=== PATIENT | male | born 1955 | race Caucasian/White ===

== ENCOUNTER 2018-07-13 18:38 | Inpatient (IN) | payer MEDICARE, OTHER, SELFPAY ==
[2018-07-13 18:40] VITALS: BP 138/83; PULSE 100; RESP 20; TEMP 36.1; O2SAT 96; BMI 31.0
--- NOTE | 2018-07-13 19:07 | EKG12_ITS ---
Test Reason : SOB Blood Pressure : / mmHG Vent. Rate : 080 BPM Atrial Rate : 080 BPM P-R Int : 206 ms QRS Dur : 080 ms QT Int : 350 ms P-R-T Axes : 031 018 027 degrees QTc Int : 403 ms Normal sinus rhythm Possible Left atrial enlargement Borderline ECG Confirmed by ISSA RIVAS, JOIE ([id number]), book or script editor BRISSA MOY ([id number]) on 07/16/2018 3:17:49 PM Referred By: SONIA Confirmed By:JOIE PARSONS MD
--- NOTE | 2018-07-13 19:10 | RAD_ITS ---
STUDY: X-RAY CHEST REASON FOR EXAM: Male, 63 years old. Shortness of breath. TECHNIQUE: Single frontal view of the chest. COMPARISON: None. FINDINGS: The left lung is mildly hyperexpanded. There are patchy opacities in the right middle and lower lobe likely representing atelectasis with a large right pleural effusion. There is a mild diffuse interstitial pattern to the right lung. Normal size heart. Normal mediastinum and ashley. Normal visualized pulmonary arteries. Normal visualized aortic arch and descending thoracic aorta. Normal visualized thoracic spine. Normal visualized ribs, clavicles, and shoulders. There is no demonstrated abnormality of the visualized soft tissue structures of the upper abdomen. RAD/Chest 1 View (Portable) IMPRESSION: Hyperexpansion of the left lung. Patchy opacities in the right middle and lower lobes likely representing atelectasis with a large right pleural effusion. No focal consolidation is present. Electronically Signed: Benigno Steven MD at 19:24 EDT , Service support ,
--- NOTE | 2018-07-13 19:10 | ED.DCSUM_ITS ---
- ER Visit Summary Date of Service: 07/13/18 Chief Complaint: Shortness of breath History of Present Illness: The patient is a 63 M presenting with shortness of breath, generalized weakness. 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 He started chemotherapy 8 days ago. Since that time he has been declining. He denies fever. He has had decreased appetite. He has nausea with no vomiting. He initially had constipation which then became diarrhea. He states his stool is more formed and normal today. He is on home O2 4 L chronically. He denies chest pain or abdominal pain. He is a previous smoker. Physical Examination: Vitals are stable. Patient is afebrile. Alert no acute distress. HEENT exam is unremarkable. Neck is supple. Lungs are rales bases bilaterally. Heart is regular rate and rhythm. Abdomen is soft nontender nondistended. Extremities are unremarkable. Skin is warm and dry. No focal neurologic deficit. Remainder of exam is unremarkable. Emergency Department Course and Treatment: Patient given IV fluids, Zofran. EKG is sinus rate of 80 with no acute ischemic changes. Chest x-ray shows hyperexpansion of the left lung, patchy opacities in the right middle and lower lobes likely representing atelectasis with a large right pleural effusion. No focal consolidation is present. CBC shows white count 1.1, platelet 110. Chemistries show glucose 150, BUN 41. Urinalysis shows positive leukocytes, 5- 10 white blood cells. Troponin negative. Lactic acid 2.2. Urine and blood cultures were sent. He was given cefepime IV. Discussed with Dr Macario and the hospitalist for admission. Disposition: Admission Impression: Metastatic lung cancer, neutropenia, right pleural effusion, UTI, generalized weakness This note was generated with zuuka! dictation software. It may contain incorrect words, spelling, and punctuation that were not noted in review of the chart prior to signing ED Disposition - Plan for ED Patient: Chief Complaint: Shortness of Breath Referrals: Kimberlyn Santiago NP-C [Primary Care Provider] -
[2018-07-13] MEDS: Ondansetron 4 MG/2 ML Vial IV ×2 (19:20→23:20)
[2018-07-13] MEDS: 0.9% Normal Saline 1,000 ML 1000 ML IV (19:20)
[2018-07-13 19:33] LABS: Absolute Lymphocyte Count 0.63 X10^3/ul (0.83-4.51); Absolute Neutrophil Count 0.4 X10^3/uL (2.0-7.7); Basophil# 0.01 X10^3/uL; Basophil% 0.9 % (0-1); Differential Indicated SCAN CRITERIA MET; Eosinophil# 0.02 X10^3/uL; Eosinophils% 1.8 % (0-5); Hematocrit 42.7 % (40-54); Hemoglobin 13.4 g/dl (13.0-16.5); Lymphocyte # 0.63 X10^3/ul (4.0); Lymphocyte % 57.8 % (19-41); Mean Corp Hgb Conc 31.4 g/gl (32-36); Mean Corpuscular Volume 82.8 fL (80-94); Mean Platelet Vol. 10.2 fl (6.2-12.0); Neutrophil # 0.43 X10^3/uL (2.7-7.7); Neutrophil % 39.5 % (47-70); POSITIVE COUNT YES; POSITIVE DIFFERENTIAL YES; POSITIVE MORPHOLOGY YES; Platelet Count 110 K/mm3 (150-450); RBC Distribution Width CV 14.4 % (11.6-14.6); RBC Distribution Width SD 43.9 fl (35.1-43.9); Red Blood Count 5.16 M/mm3 (4.6-6.2)
[2018-07-13 19:35] LABS: White Blood Count 1.1 K/mm3 (4.4-11.0)
[2018-07-13 19:40] LABS: Bacteria 0 SEEN /hpf (None Seen); Mucous, Urine 0 SEEN /hpf (<or=2+); Red Blood Cells-Urine 0 SEEN /hpf (0-5); Squamous Epithelial Cells - UA 0 SEEN /hpf (0-5)
[2018-07-13 19:43] LABS: Anion Gap 11 (5-15); BUN 41 mg/dL (7-18); BUN/Creat Ratio 32.3 RATIO (10-20); Calcium,Total 9.1 mg/dL (8.5-10.1); Chloride 103 mmol/L (98-107); Creatinine, Serum 1.27 mg/dL (0.70-1.30); EST Glomerular Filtration Rate 60 mL/min (>60); Est Glom Filt Rate - Afr Amer 73 mL/min (>60); Estimated Creatinine Clearance 54.22 ml/min; Glucose 150 mg/dL (74-106); Potassium 4.6 mmol/L (3.5-5.1); Sodium Level 138 mmol/L (136-145)
--- NOTE | 2018-07-13 19:44 | ED.RN ---
WBC OF 1.[address] SCOTT
[2018-07-13 19:54] LABS: Color, Urine Yellow (Yellow); Glucose, Dipstick 50 mg/dl (Normal); Ketone-Dipstick 5 mg/dl (Negative); Leukocyte Esterase-Dipstick 500 /ul (Negative); Nitrite-Dipstick Negative (Negative); Occult Blood-Urine 25 /ul (Negative); Protein-Dipstick 100 mg/dl (Negative); Urine Clarity Sl. Cloudy (Clear); Urine Urobilinogen 8 mg/dl (Normal)
[2018-07-13 20:08] VITALS: BP 149/79; PULSE 85; RESP 18; O2SAT 96
[2018-07-13 20:11] LABS: Differential Comment SCANNED
[2018-07-13 20:12] LABS: Lactic Acid 2.2 mmol/L (0.4-2.0)
[2018-07-13 20:17] LABS: Urine Bilirubin Dipstick 3 mg/dL (Negative)
[2018-07-13 20:22] LABS: White Cell Cast 0-5 SEEN /lpf (None Seen)
[2018-07-13 20:25] LABS: White Blood Cells 5-10 SEEN /hpf (0-5)
--- NOTE | 2018-07-13 20:58 | HP.PCM_ITS ---
Problem List (1) Metastatic primary lung cancer Status: Acute (2) Neutropenia Status: Acute (3) Cystitis Status: Acute History of Present Illness Date of Admission: 07/13/18 Chief Complaint: Increasing shortness of breath The patient is a 63 year old M with a significant history of metastatic lung cancer who received chemotherapy 8 days ago presenting with increasing shortness of breath and noisy respiration that started about a week ago. His oncology nurse check on him over the phone and advised him to come to the emergency department. Associated with symptoms is anorexia and diarrhea. Patient had a pleural effusions with multiple thoracentesis. At the emergency department was found to have right-sided pleural effusion. His urinalysis was abnormal but patient denied any urinary symptoms. He was found to be severely neutropenic with white blood count of 1.1. He reports episodic diarrhea and an occasional wiping blood from his anus that he attributes to hemorrhoids. Past Medical History Allergies No Known Allergies Allergy (Verified 07/13/18 18:39) Home Medications: Ambulatory Orders Medication Instructions Recorded Bmx Liquid 5 ml PO Q4H PRN PRN 07/13/18 Dexamethasone [Decadron] 4 mg PO BIDCM 07/13/18 Dronabinol [Marinol] 5 mg PO BID 07/13/18 Folic Acid 1 mg PO DAILY@0800 07/13/18 Hydrocodone/Acetaminophen [[place] 1 each PO Q6H PRN PRN 07/13/18 5-325 Tablet] Ibuprofen [Motrin] 800 mg PO Q6H PRN PRN 07/13/18 Ipratropium/Albuterol Sulfate 3 ml INHALATION Q4H.RT 07/13/18 [Duoneb] Omeprazole 40 mg PO DAILY 07/13/18 Ondansetron [Zofran] 8 mg PO Q8H PRN PRN 07/13/18 Pembrolizumab [Keytruda] 100 mg IV 07/13/18 Pemetrexed 07/13/18 Sertraline HCl [Zoloft] 50 mg PO DAILY 07/13/18 Surgical History: - - Had basal cell carcinoma removal from his face. Lives: Spouse/ Significant Other Smoking Status: Former smoker Alcohol: None - *Family History Maternal Family History: Family History (Last Updated 07/13/18 @ 21:44 by Arsenio Pedro MD) Brother Heart problem History Items: Diabetes Paternal Family History: Family History (Last Updated 07/13/18 @ 21:44 by Arsenio Pedro MD) Brother Heart problem History Items: Diabetes Review of Systems Constitutional: Reports: Anorexia, Weakness HEENT: Denies: Head Aches, Sinus Congestion, Sinus Drainage Cardiovascular: Denies: Chest Pain, Palpitations Respiratory: Reports: Shortness of Breath. Denies: Cough Gastrointestinal: Reports: Diarrhea, Nausea. Denies: Abdominal Pain Genitourinary: Denies: Dysuria Musculoskeletal: Denies: Joint Pain, Joint Tenderness Skin: Denies: Rash, Wounds Neurological: Denies: Numbness, Tingling, Focal weakness Psychiatric: Denies: Anxiety, Depression, Homicidal Ideations, Suicidal Ideations Hematologic/ Lymphatic: Denies: Easy Bruising, Easy Bleeding VTE Information - Inpt Only VTE Present on Admission: No VTE Mechan Device Prophylaxis: None VTE Pharm Prophylaxis ordered?: Yes Patient Problems: Active and Suspected Problems Metastatic primary lung cancer (Acute) Neutropenia (Acute) Cystitis (Acute) - Physical Exam General: Alert, Oriented x3, - - Patient looks tired. HEENT: Atraumatic, PERRLA, EOMI, Normocephalic Neck: Supple, No JVD, Negative Carotid Bruits Lungs: Clear to auscultation, Normal air movement, Diminished - Right base. Cardiovascular: Regular rate, No murmurs Abdomen: Bowel Sounds Present, Soft, Non Tender Extremities: No edema, Capillary Refill Less than 3 Seconds Skin: No rashes, No breakdown Musculoskeletal: No Tenderness to Palpation of Joints or Extremities Neurological: Cranial nerves II-XII grossly intact Psych/Mental Status: Normal Affect, Appropriate Vital Signs Temp Pulse Resp BP Pulse Ox 96.9 F L 85 18 149/79 H 96 07/13/18 18:40 07/13/18 20:08 07/13/18 20:08 07/13/18 20:08 07/13/18 20:08 Oxygen Flow Rate (L/min) 4 Oxygen Delivery Method Nasal Cannula Weight: 89.9 kg Body Mass Index (BMI) 31.0 Laboratory Tests Past 24 Hrs 07/13/18 07/13/18 07/13/18 18:58 18:58 19:18 WBC 1.1 L* RBC 5.16 Hgb 13.4 Hct 42.7 MCV 82.8 MCH 26.0 L MCHC 31.4 L RDW 14.4 RDW Differential 43.9 Plt Count 110 L MPV 10.2 Immature Gran % (Auto) 0.000 Neut % (Auto) 39.5 L Lymph % (Auto) 57.8 H [place] % (Auto) 0.0 Eos % (Auto) 1.8 Baso % (Auto) 0.9 Absolute Neuts (auto) 0.4 L Absolute Lymphs (auto) 0.63 L Total Counted Not Reportable Differential Comment SCANNED Diff Path Review May foll Sodium 138 Potassium 4.6 Chloride 103 Carbon Dioxide 24.0 Anion Gap 11 BUN 41 H Creatinine 1.27 Estim Creat Clear Calc 54.22 Est GFR (MDRD) Af Amer 73 Est GFR (MDRD) Non-Af 60 BUN/Creatinine Ratio 32.3 H Glucose 150 H Lactic Acid 2.2 H Calcium 9.1 Troponin I < 0.015 Urine Color Urine Clarity Urine pH Ur Specific [place] Urine Protein Urine Glucose (UA) Urine Ketones Urine Occult Blood Urine Nitrite Urine Bilirubin Urine Urobilinogen Ur Leukocyte Esterase Urine RBC Urine WBC Ur Squamous Epith Cells Urine Bacteria WBC Casts Urine Mucus 07/13/18 19:30 WBC RBC Hgb Hct MCV MCH MCHC RDW RDW Differential Plt Count MPV Immature Gran % (Auto) Neut % (Auto) Lymph % (Auto) [place] % (Auto) Eos % (Auto) Baso % (Auto) Absolute Neuts (auto) Absolute Lymphs (auto) Total Counted Differential Comment Diff Path Review Sodium Potassium Chloride Carbon Dioxide Anion Gap BUN Creatinine Estim Creat Clear Calc Est GFR (MDRD) Af Amer Est GFR (MDRD) Non-Af BUN/Creatinine Ratio Glucose Lactic Acid Calcium Troponin I Urine Color Yellow Urine Clarity Sl. Cloudy Urine pH 6.0 Ur Specific [place] 1.020 Urine Protein 100 H Urine Glucose (UA) 50 H Urine Ketones 5 H Urine Occult Blood 25 H Urine Nitrite Negative Urine Bilirubin 3 H Urine Urobilinogen 8 H Ur Leukocyte Esterase 500 H Urine RBC 0 SEEN Urine WBC 5-10 SEEN Ur Squamous Epith Cells 0 SEEN Urine Bacteria 0 SEEN WBC Casts 0-5 SEEN Urine Mucus 0 SEEN Assessment/Plan All Active Problems Metastatic primary lung cancer (Acute) Neutropenia (Acute) Cystitis (Acute) The patient is a 63 year old M with a significant history of metastatic lung cancer who received chemotherapy 8 days ago presenting with increasing shortness of breath and noisy respiration and found to have radiographic evidence of right-sided pleural effusion and severe neutropenia with abnormal urinalysis. Right pleural effusion Radiographic evidence of right pleural effusion and opacities in right middle lobe and lower lobe. Likely secondary to metastatic lung cancer. Therapeutic ultrasound thoracentesis ordered. Patient on Cefepime which should also help for any probable pneumonia. INR ordered. Metastatic lung cancer Patient is a known patient of Dr. Savage, oncologist. Oncology consult. Imodium as needed for diarrhea Zofran as needed for nausea. Continue Marinol for anorexia. Prn norco for pain. Neutropenia Patient is a white count of 1.1 on admission. With percentage neutrophils of 39.5 this brings his absolute neutrophils to 434.5 Neutropenic precautions ordered. Cystitis Patient with abnormal urinalysis but denies any urinary symptoms. However because of his neutropenia we will not take any chances at this time. He received cefepime in the emergency department. Cefepime Continued. DVT prophylaxis Subcutaneous heparin ordered. In view of patient's going to receive thoracentesis Lovenox was not ordered. Code Visit Inpatient E&M: 48044 Init Hosp L3
[2018-07-13 22:10] VITALS: BMI 30.9
[2018-07-13 22:35] VITALS: BP 131/74; PULSE 81; RESP 18; RESP 20; TEMP 36.8; O2SAT 94
[2018-07-13] MEDS: Ibuprofen 400 MG Tablet 800 MG PO (22:58)
[2018-07-13] MEDS: HYDROcodone Bitartrate/Apap 5/325 Tablet PO (22:59)
[2018-07-13] MEDS: Heparin Injection (Vial) 5,000 UNIT/ML VIAL 5000 UNIT SC (23:00)
[2018-07-13] MEDS: Dronabinol 2.5 MG Capsule 5 MG PO (23:00)
[2018-07-13] MEDS: BMX LIQUID 180 ML PO (23:01)
[2018-07-13] MEDS: 0.9% NaCl Peripheral Flush Adult/Peds IV (23:20)
[2018-07-13 23:26] LABS: Reflex Lactate? Y
[2018-07-14] VITALS (8 sets, daily range): BP systolic 127–154; BP diastolic 72–78; PULSE 91–96; RESP 16–18; TEMP 36.4–37; O2SAT 94–97
[2018-07-14 00:26] LABS: Lactic Acid 1.6 mmol/L (0.4-2.0)
[2018-07-14] MEDS: Ibuprofen 400 MG Tablet 800 MG PO ×2 (05:03→20:46)
[2018-07-14] MEDS: Heparin Injection (Vial) 5,000 UNIT/ML VIAL 5000 UNIT SC ×2 (05:03→14:17)
[2018-07-14] MEDS: HYDROcodone Bitartrate/Apap 5/325 Tablet PO ×3 (05:03→20:46)
[2018-07-14] MEDS: Ipratropium/Albuterol Sulfate 3 ML AMPUL.NEB INHALATION ×4 (07:46→18:56)
[2018-07-14] MEDS: Folic Acid 1 MG Tablet PO (07:47)
[2018-07-14] MEDS: Ondansetron 4 MG/2 ML Vial IV ×2 (07:52→17:29)
[2018-07-14 07:53] LABS: Absolute Lymphocyte Count 0.34 X10^3/ul (0.83-4.51); Absolute Neutrophil Count 0.2 X10^3/uL (2.0-7.7); Basophil# 0.01 X10^3/uL; Basophil% 1.9 % (0-1); Eosinophil# 0.01 X10^3/uL; Eosinophils% 1.9 % (0-5); Hematocrit 36.8 % (40-54); Hemoglobin 11.6 g/dl (13.0-16.5); Lymphocyte # 0.34 X10^3/ul (4.0); Lymphocyte % 65.4 % (19-41); Mean Corp Hgb Conc 31.5 g/gl (32-36); Mean Corpuscular Hgb 25.8 pg (27.0-32.0); Mean Platelet Vol. 10.5 fl (6.2-12.0); Neutrophil # 0.16 X10^3/uL (2.7-7.7); Neutrophil % 30.8 % (47-70); Platelet Count 81 K/mm3 (150-450); RBC Distribution Width CV 14.5 % (11.6-14.6); RBC Distribution Width SD 42.3 fl (35.1-43.9); Red Blood Count 4.49 M/mm3 (4.6-6.2)
[2018-07-14] MEDS: 0.9% NaCl Peripheral Flush Adult/Peds IV ×3 (07:53→17:29)
[2018-07-14 07:57] LABS: Anion Gap 9 (5-15); BUN 39 mg/dL (7-18); BUN/Creat Ratio 44.5 RATIO (10-20); Calcium,Total 8.2 mg/dL (8.5-10.1); Chloride 108 mmol/L (98-107); Creatinine, Serum 0.88 mg/dL (0.70-1.30); EST Glomerular Filtration Rate 93 mL/min (>60); Est Glom Filt Rate - Afr Amer 112 mL/min (>60); Estimated Creatinine Clearance 78.24 ml/min; Glucose 132 mg/dL (74-106); Potassium 3.9 mmol/L (3.5-5.1); Sodium Level 138 mmol/L (136-145)
[2018-07-14 07:59] LABS: Differential Indicated SCAN CRITERIA MET; POSITIVE COUNT YES; POSITIVE DIFFERENTIAL YES; POSITIVE MORPHOLOGY NO; White Blood Count 0.5 K/mm3 (4.4-11.0)
[2018-07-14 08:17] LABS: Differential Comment SCANNED; Platelet Estimate MKD DEC (ADEQ); Platelet Morphology LARGE
[2018-07-14 08:20] LABS: International Normalized Ratio 1.2; Prothrombin Time (Protime)PT. 15.6 SECONDS (11.7-14.9)
--- NOTE | 2018-07-14 08:54 | PCM.PN.HOSP ---
Patient Problems: Active and Suspected Problems Neutropenia (Acute) Cystitis (Acute) Pleural effusion (Acute) Severe sepsis (Acute) Subjective: + Nausea since chemotherapy. Pain in mouth. Occasionally coughs up blood. Short of breath. Hip pain due to metastatic lesions. Vitals/I&O's: Vital Signs Temp Pulse Resp BP Pulse Ox 37.0 C 94 18 135/72 H 94 07/14/18 05:01 07/14/18 05:01 07/14/18 05:01 07/14/18 05:01 07/14/18 05:01 Oxygen Flow Rate (L/min) 4 Oxygen Delivery Method Nasal Cannula Weight: 89.5 kg Body Mass Index (BMI) 30.9 Intake and Output for Last 24 Hours 07/12/18 07/13/18 07/14/18 23:59 23:59 23:59 Intake Total 250 / 250 400 / 400 Balance 250 / 250 400 / 400 General: Alert, Cooperative, No apparent distress HEENT: Atraumatic, Normocephalic, - - slight amount of blood at Left nares. Oral: Dry Mucosa, - - blood an mucous at top of mouth adjacent to top dentures. Neck: No Nodes, Thyroid Normal Size and Texture Lungs: Diminished, - - DTP RLL. coarse BS Cardiovascular: Regular rate, Regular Rhythm, Normal S1, Normal S2, No murmurs Abdomen: Bowel Sounds Present, Soft, Non Tender, Non-Distended, No Hepato-splenomegaly Extremities: No edema, No Calf Tenderness Skin: No rashes, No breakdown Musculoskeletal: No Tenderness to Palpation of Joints or Extremities, No Muscle Wasting Lymphatic: - - no cervical LAD Neurological: - - no clonus. no hyperreflexia. Psych/Mental Status: Normal Affect, Appropriate Laboratory Results 07/13/18 18:58: WBC 1.1 L*, RBC 5.16, Hgb 13.4, Hct 42.7, MCV 82.8, MCH 26.0 L, MCHC 31.4 L, RDW 14.4, RDW Differential 43.9, Plt Count 110 L, MPV 10.2, Immature Gran % (Auto) 0.000, Neut % (Auto) 39.5 L, Lymph % (Auto) 57.8 H, [place] % (Auto) 0.0, Eos % (Auto) 1.8, Baso % (Auto) 0.9, Absolute Neuts (auto) 0.4 L, Absolute Lymphs (auto) 0.63 L, Total Counted Not Reportable, Differential Comment SCANNED, Diff Path Review January foll 07/13/18 18:58: Sodium 138, Potassium 4.6, Chloride 103, Carbon Dioxide 24.0, Anion Gap 11, BUN 41 H, Creatinine 1.27, Estim Creat Clear Calc 54.22, Est GFR (MDRD) Af Amer 73, Est GFR (MDRD) Non-Af 60, BUN/Creatinine Ratio 32.3 H, Glucose 150 H, Calcium 9.1, Troponin I < 0.015 07/13/18 19:18: Lactic Acid 2.2 H 07/13/18 19:30: Urine Color Yellow, Urine Clarity Sl. Cloudy, Urine pH 6.0, Ur Specific [place] 1.020, Urine Protein 100 H, Urine Glucose (UA) 50 H, Urine Ketones 5 H, Urine Occult Blood 25 H, Urine Nitrite Negative, Urine Bilirubin 3 H, Urine Urobilinogen 8 H, Ur Leukocyte Esterase 500 H, Urine RBC 0 SEEN, Urine WBC 5-10 SEEN, Ur Squamous Epith Cells 0 SEEN, Urine Bacteria 0 SEEN, WBC Casts 0-5 SEEN, Urine Mucus 0 SEEN 07/13/18 23:50: Lactic Acid 1.6 07/14/18 07:18: WBC 0.5 L*, RBC 4.49 L, Hgb 11.6 L, Hct 36.8 L, MCV 82.0, MCH 25.8 L, MCHC 31.5 L, RDW 14.5, RDW Differential 42.3, Plt Count 81 L, MPV 10.5, Immature Gran % (Auto) 0.000, Neut % (Auto) 30.8 L, Lymph % (Auto) 65.4 H, [place] % (Auto) 0.0, Eos % (Auto) 1.9, Baso % (Auto) 1.9 H, Absolute Neuts (auto) 0.2 L, Absolute Lymphs (auto) 0.34 L, Total Counted Not Reportable, Differential Comment SCANNED, Diff Path Review January sandra, Platelet Estimate MKD DEC, Plt Morphology Comment LARGE 07/14/18 07:18: PT 15.6 H, INR 1.2 07/14/18 07:18: Sodium 138, Potassium 3.9, Chloride 108 H, Carbon Dioxide 21.0, Anion Gap 9, BUN 39 H, Creatinine 0.88, Estim Creat Clear Calc 78.24, Est GFR (MDRD) Af Amer 112, Est GFR (MDRD) Non-Af 93, BUN/Creatinine Ratio 44.5 H, Glucose 132 H, Calcium 8.2 L CXR reviewed and showed a RLL effusion. Current Medications Hydrocodone Bitart/Acetaminophen ([place] 5mg-325mg) 1 tablet PO Q6H PRN PRN PRN Reason: PAIN Last Admin: 07/14/18 05:03 Dose: 1 tablet Albuterol/Ipratropium (Duoneb) 3 ml INHALATION Q4H.RT [facility] Last Admin: 07/14/18 07:46 Dose: 3 ml Dexamethasone (Decadron) 4 mg PO BIDCM [facility] Last Admin: 07/14/18 07:47 Dose: Not Given Dronabinol (Marinol) 5 mg PO BID [facility] Last Admin: 07/13/18 23:00 Dose: 5 mg Folic Acid (Folic Acid) 1 mg PO DAILY@0800 [facility] Last Admin: 07/14/18 07:47 Dose: 1 mg Heparin Sodium (Porcine) (Heparin Na) 5,000 unit SC Q8 [facility] Last Admin: 07/14/18 05:03 Dose: 5,000 unit Cefepime HCl 2 gm/ Sodium (Chloride) 100 mls @ 200 mls/hr IV 2200 [facility] Ibuprofen (Motrin) 800 mg PO Q6H PRN PRN PRN Reason: PAIN Last Admin: 07/14/18 05:03 Dose: 800 mg Lidocaine/Diphenhydr/Alum/Mg/Simeth () 5 ml PO Q4H PRN PRN PRN Reason: PAIN Last Admin: 07/13/18 23:01 Dose: 5 ml Loperamide HCl (Imodium) 2 mg PO Q2H PRN PRN PRN Reason: Diarrhea Magnesium Hydroxide (Milk Of Magnesia) 30 ml PO DAILY PRN PRN PRN Reason: Constipation Nutritional Formula (Lactose Free) (Ensure Enlive) 120 ml PO 4X/DAY [facility] Ondansetron HCl (Zofran) 4 mg IV Q8H PRN PRN PRN Reason: NAUSEA Last Admin: 07/14/18 07:52 Dose: 4 mg Ondansetron HCl (Zofran) 8 mg PO Q8H PRN PRN PRN Reason: nausea Pantoprazole Sodium (Protonix) 40 mg PO DAILY ANN Sertraline HCl (Zoloft) 50 mg PO DAILY ANN Sodium Chloride () 5 - 30 ml IV UD PRN PRN Reason: SALINE FLUSH Last Admin: 07/14/18 07:53 Dose: 10 ml Zolpidem Tartrate (Ambien (Generic)) 5 mg PO QHS PRN PRN PRN Reason: INSOMNIA Medical Necessity - Tobacco Use Smoking Status: Former smoker Assessment/Plan All Active Problems Neutropenia (Acute) Cystitis (Acute) Pleural effusion (Acute) Severe sepsis (Acute) 1. Severe sepsis: POA improved unclear etiology (pneumonia, UTI) lactate normalized follow up blood and urine cultures check urinary antigens for strep and legionella on empiric cefepime 2. Neutropenia worse today no fever oncology on consult likely due to chemotherapy 3. Pleural effusion presumably malignant thoracentesis for 07/16 has had previous thoracenteses consider pleur-x catheter for palliation 4. Stage IV lung cancer (NSCLC?) per patient on chemo and immunotherapy oncology on consult 5. Nausea likely chemo related check AXR to eval for ileus supportive mgmt 6. Dry mouth start biotene, lidocaine 7. Advanced care planning: spent an additional 20 minutes discussing with the patient about his lung cancer and the palliative chemotherapy. Recommended palliative care for outpt symptom mgmt. He agreed to speak with them. Code Visit Inpatient E&M: 80828 Subs Hosp L3 Procedures: 65905 Advncd Care Plan 30 Min
--- NOTE | 2018-07-14 08:58 | PN_ITS ---
Patient Problems: Active and Suspected Problems Neutropenia (Acute) Cystitis (Acute) Pleural effusion (Acute) Severe sepsis (Acute) Subjective: + Nausea since chemotherapy. Pain in mouth. Occasionally coughs up blood. Short of breath. Hip pain due to metastatic lesions. Vitals/I&O's: Vital Signs Temp Pulse Resp BP Pulse Ox 37.0 C 94 18 135/72 H 94 07/14/18 05:01 07/14/18 05:01 07/14/18 05:01 07/14/18 05:01 07/14/18 05:01 Oxygen Flow Rate (L/min) 4 Oxygen Delivery Method Nasal Cannula Weight: 89.5 kg Body Mass Index (BMI) 30.9 Intake and Output for Last 24 Hours 07/12/18 07/13/18 07/14/18 23:59 23:59 23:59 Intake Total 250 / 250 400 / 400 Balance 250 / 250 400 / 400 General: Alert, Cooperative, No apparent distress HEENT: Atraumatic, Normocephalic, - - slight amount of blood at Left nares. Oral: Dry Mucosa, - - blood an mucous at top of mouth adjacent to top dentures. Neck: No Nodes, Thyroid Normal Size and Texture Lungs: Diminished, - - DTP RLL. coarse BS Cardiovascular: Regular rate, Regular Rhythm, Normal S1, Normal S2, No murmurs Abdomen: Bowel Sounds Present, Soft, Non Tender, Non-Distended, No Hepato- splenomegaly Extremities: No edema, No Calf Tenderness Skin: No rashes, No breakdown Musculoskeletal: No Tenderness to Palpation of Joints or Extremities, No Muscle Wasting Lymphatic: - - no cervical LAD Neurological: - - no clonus. no hyperreflexia. Psych/Mental Status: Normal Affect, Appropriate Laboratory Results 07/13/18 18:58: WBC 1.1 L*, RBC 5.16, Hgb 13.4, Hct 42.7, MCV 82.8, MCH 26.0 L, MCHC 31.4 L, RDW 14.4, RDW Differential 43.9, Plt Count 110 L, MPV 10.2, Immature Gran % (Auto) 0.000, Neut % (Auto) 39.5 L, Lymph % (Auto) 57.8 H, [place] % (Auto) 0.0, Eos % (Auto) 1.8, Baso % (Auto) 0.9, Absolute Neuts (auto) 0.4 L, Absolute Lymphs (auto) 0.63 L, Total Counted Not Reportable, Differential Comment SCANNED, Diff Path Review January foll 07/13/18 18:58: Sodium 138, Potassium 4.6, Chloride 103, Carbon Dioxide 24.0, Anion Gap 11, BUN 41 H, Creatinine 1.27, Estim Creat Clear Calc 54.22, Est GFR (MDRD) Af Amer 73, Est GFR (MDRD) Non-Af 60, BUN/Creatinine Ratio 32.3 H, Glucose 150 H, Calcium 9.1, Troponin I < 0.015 07/13/18 19:18: Lactic Acid 2.2 H 07/13/18 19:30: Urine Color Yellow, Urine Clarity Sl. Cloudy, Urine pH 6.0, Ur Specific [place] 1.020, Urine Protein 100 H, Urine Glucose (UA) 50 H, Urine Ketones 5 H, Urine Occult Blood 25 H, Urine Nitrite Negative, Urine Bilirubin 3 H, Urine Urobilinogen 8 H, Ur Leukocyte Esterase 500 H, Urine RBC 0 SEEN, Urine WBC 5-10 SEEN, Ur Squamous Epith Cells 0 SEEN, Urine Bacteria 0 SEEN, WBC Casts 0-5 SEEN, Urine Mucus 0 SEEN 07/13/18 23:50: Lactic Acid 1.6 07/14/18 07:18: WBC 0.5 L*, RBC 4.49 L, Hgb 11.6 L, Hct 36.8 L, MCV 82.0, MCH 25.8 L, MCHC 31.5 L, RDW 14.5, RDW Differential 42.3, Plt Count 81 L, MPV 10.5, Immature Gran % (Auto) 0.000, Neut % (Auto) 30.8 L, Lymph % (Auto) 65.4 H, [place] % (Auto) 0.0, Eos % (Auto) 1.9, Baso % (Auto) 1.9 H, Absolute Neuts (auto) 0.2 L , Absolute Lymphs (auto) 0.34 L, Total Counted Not Reportable, Differential Comment SCANNED, Diff Path Review January sandra, Platelet Estimate MKD DEC, Plt Morphology Comment LARGE 07/14/18 07:18: PT 15.6 H, INR 1.2 07/14/18 07:18: Sodium 138, Potassium 3.9, Chloride 108 H, Carbon Dioxide 21.0, Anion Gap 9, BUN 39 H, Creatinine 0.88, Estim Creat Clear Calc 78.24, Est GFR (MDRD) Af Amer 112, Est GFR (MDRD) Non-Af 93, BUN/Creatinine Ratio 44.5 H, Glucose 132 H, Calcium 8.2 L CXR reviewed and showed a RLL effusion. Current Medications Hydrocodone Bitart/Acetaminophen ([place] 5mg-325mg) 1 tablet PO Q6H PRN PRN PRN Reason: PAIN Last Admin: 07/14/18 05:03 Dose: 1 tablet Albuterol/Ipratropium (Duoneb) 3 ml INHALATION Q4H.RT [facility] Last Admin: 07/14/18 07:46 Dose: 3 ml Dexamethasone (Decadron) 4 mg PO BIDCM [facility] Last Admin: 07/14/18 07:47 Dose: Not Given Dronabinol (Marinol) 5 mg PO BID [facility] Last Admin: 07/13/18 23:00 Dose: 5 mg Folic Acid (Folic Acid) 1 mg PO DAILY@0800 [facility] Last Admin: 07/14/18 07:47 Dose: 1 mg Heparin Sodium (Porcine) (Heparin Na) 5,000 unit SC Q8 [facility] Last Admin: 07/14/18 05:03 Dose: 5,000 unit Cefepime HCl 2 gm/ Sodium (Chloride) 100 mls @ 200 mls/hr IV 2200 [facility] Ibuprofen (Motrin) 800 mg PO Q6H PRN PRN PRN Reason: PAIN Last Admin: 07/14/18 05:03 Dose: 800 mg Lidocaine/Diphenhydr/Alum/Mg/Simeth () 5 ml PO Q4H PRN PRN PRN Reason: PAIN Last Admin: 07/13/18 23:01 Dose: 5 ml Loperamide HCl (Imodium) 2 mg PO Q2H PRN PRN PRN Reason: Diarrhea Magnesium Hydroxide (Milk Of Magnesia) 30 ml PO DAILY PRN PRN PRN Reason: Constipation Nutritional Formula (Lactose Free) (Ensure Enlive) 120 ml PO 4X/DAY [facility] Ondansetron HCl (Zofran) 4 mg IV Q8H PRN PRN PRN Reason: NAUSEA Last Admin: 07/14/18 07:52 Dose: 4 mg Ondansetron HCl (Zofran) 8 mg PO Q8H PRN PRN PRN Reason: nausea Pantoprazole Sodium (Protonix) 40 mg PO DAILY ANN Sertraline HCl (Zoloft) 50 mg PO DAILY ANN Sodium Chloride () 5 - 30 ml IV UD PRN PRN Reason: SALINE FLUSH Last Admin: 07/14/18 07:53 Dose: 10 ml Zolpidem Tartrate (Ambien (Generic)) 5 mg PO QHS PRN PRN PRN Reason: INSOMNIA Medical Necessity - Tobacco Use Smoking Status: Former smoker Assessment/Plan All Active Problems Neutropenia (Acute) Cystitis (Acute) Pleural effusion (Acute) Severe sepsis (Acute) 1. Severe sepsis: * POA * improved * unclear etiology (pneumonia, UTI) * lactate normalized * follow up blood and urine cultures * check urinary antigens for strep and legionella * on empiric cefepime 2. Neutropenia * worse today * no fever * oncology on consult * likely due to chemotherapy 3. Pleural effusion * presumably malignant * thoracentesis for 07/16 * has had previous thoracenteses * consider pleur-x catheter for palliation 4. Stage IV lung cancer (NSCLC?) * per patient on chemo and immunotherapy * oncology on consult 5. Nausea * likely chemo related * check AXR to eval for ileus * supportive mgmt 6. Dry mouth * start biotene, lidocaine 7. Advanced care planning: spent an additional 20 minutes discussing with the patient about his lung cancer and the palliative chemotherapy. Recommended palliative care for outpt symptom mgmt. He agreed to speak with them. Code Visit Inpatient E&M: 88898 Subs Hosp L3 Procedures: 06199 Advncd Care Plan 30 Min
[2018-07-14] MEDS: Dronabinol 2.5 MG Capsule 5 MG PO ×2 (09:38→22:24)
[2018-07-14] MEDS: Sertraline 50 MG Tablet PO (09:38)
[2018-07-14] MEDS: Pantoprazole Sodium 40 MG Tablet PO (09:38)
--- NOTE | 2018-07-14 10:04 | NURSING ---
Pt had emesis immediately after pills given this morning.
--- NOTE | 2018-07-14 10:22 | CON.PCM_ITS ---
Problem List (1) Neutropenia Status: Acute (2) Pleural effusion Status: Acute (3) Metastatic primary lung cancer Status: Chronic Reason for Consult Date of Consultation: 07/14/18 Reason for Consultation: Fatigue and failure to thrive. Neutropenia from chemotherapy for lung cancer. History of Present Illness: The patient is a 63 year old male with a diagnosis of metastatic lung cancer. Presented with a malignanat Right sided effusion with mediastinal LNpathy. The patient had a chest tube placed with pleurodesis. He was given his 1st cycle of chemotherapy with carboplatinum, Alimta and Kytruda on 07.05.18. Now presents with failure to thrive. The patient denies any fevers of chills. Has nausea. Has not been eating well. No dysurea. No abd pain. Complaining of sore throat and difficultyswallowing. This morning the WBC count has dropped down to 0.5 with and ANC of 200. On Cefepime. The patient was not given neulasta with the chemotherapy. Past Medical History Past Medical History (Chronic Problems): Chronic Problems Metastatic primary lung cancer (Chronic) Allergies No Known Allergies Allergy (Verified 07/13/18 18:39) Home Medications: Ambulatory Orders Medication Instructions Recorded Bmx Liquid 5 ml PO Q4H PRN PRN 07/13/18 Dexamethasone [Decadron] 4 mg PO BIDCM 07/13/18 Dronabinol [Marinol] 5 mg PO BID 07/13/18 Folic Acid 1 mg PO DAILY@0800 07/13/18 Hydrocodone/Acetaminophen [[place] 1 each PO Q6H PRN PRN 07/13/18 5-325 Tablet] Ibuprofen [Motrin] 800 mg PO Q6H PRN PRN 07/13/18 Ipratropium/Albuterol Sulfate 3 ml INHALATION Q4H.RT 07/13/18 [Duoneb] Omeprazole 40 mg PO DAILY 07/13/18 Ondansetron [Zofran] 8 mg PO Q8H PRN PRN 07/13/18 Pembrolizumab [Keytruda] 100 mg IV 07/13/18 Pemetrexed 07/13/18 Sertraline HCl [Zoloft] 50 mg PO DAILY 07/13/18 Surgical History: - - Had basal cell carcinoma removal from his face. Lives: Spouse/ Significant Other Smoking Status: Former smoker Alcohol: None - *Family History Maternal Family History: Family History (Last Updated 07/13/18 @ 21:44 by Arsenio Pedro MD) Brother Heart problem History Items: Diabetes Paternal Family History: Family History (Last Updated 07/13/18 @ 21:44 by Arsenio Pedro MD) Brother Heart problem History Items: Diabetes Patient Problems: Active and Suspected Problems Severe sepsis (Acute) Pleural effusion (Acute) Neutropenia (Acute) Cystitis (Acute) - Physical Exam HEENT: Atraumatic, PERRLA, EOMI, Normocephalic Neck: Supple, No JVD, Negative Carotid Bruits Lungs: Diminished - reduced air entry in the Right lung bases. Cardiovascular: Regular rate, No murmurs Abdomen: Bowel Sounds Present, Soft, Non Tender Extremities: No edema, Capillary Refill Less than 3 Seconds Neurological: Cranial nerves II-XII grossly intact Psych/Mental Status: Normal Affect Vital Signs Temp Pulse Resp BP Pulse Ox 97.6 F L 96 18 131/74 H 97 07/14/18 09:25 07/14/18 09:25 07/14/18 09:25 07/14/18 09:25 07/14/18 09:25 Oxygen Flow Rate (L/min) 4 Oxygen Delivery Method Nasal Cannula Weight: 89.5 kg Body Mass Index (BMI) 30.9 Intake and Output for Last 24 Hours 07/12/18 07/13/18 07/14/18 23:59 23:59 23:59 Intake Total 250 / 250 400 / 400 Balance 250 / 250 400 / 400 Laboratory Tests Past 24 Hrs 07/13/18 07/13/18 07/13/18 18:58 18:58 19:18 WBC 1.1 L* RBC 5.16 Hgb 13.4 Hct 42.7 MCV 82.8 MCH 26.0 L MCHC 31.4 L RDW 14.4 RDW Differential 43.9 Plt Count 110 L MPV 10.2 Immature Gran % (Auto) 0.000 Neut % (Auto) 39.5 L Lymph % (Auto) 57.8 H [place] % (Auto) 0.0 Eos % (Auto) 1.8 Baso % (Auto) 0.9 Absolute Neuts (auto) 0.4 L Absolute Lymphs (auto) 0.63 L Total Counted Not Reportable Differential Comment SCANNED Diff Path Review May foll Platelet Estimate Plt Morphology Comment PT INR Sodium 138 Potassium 4.6 Chloride 103 Carbon Dioxide 24.0 Anion Gap 11 BUN 41 H Creatinine 1.27 Estim Creat Clear Calc 54.22 Est GFR (MDRD) Af Amer 73 Est GFR (MDRD) Non-Af 60 BUN/Creatinine Ratio 32.3 H Glucose 150 H Lactic Acid 2.2 H Calcium 9.1 Troponin I < 0.015 Urine Color Urine Clarity Urine pH Ur Specific [place] Urine Protein Urine Glucose (UA) Urine Ketones Urine Occult Blood Urine Nitrite Urine Bilirubin Urine Urobilinogen Ur Leukocyte Esterase Urine RBC Urine WBC Ur Squamous Epith Cells Urine Bacteria WBC Casts Urine Mucus 07/13/18 07/13/18 07/14/18 19:30 23:50 07:18 WBC 0.5 L* RBC 4.49 L Hgb 11.6 L Hct 36.8 L MCV 82.0 MCH 25.8 L MCHC 31.5 L RDW 14.5 RDW Differential 42.3 Plt Count 81 L MPV 10.5 Immature Gran % (Auto) 0.000 Neut % (Auto) 30.8 L Lymph % (Auto) 65.4 H [place] % (Auto) 0.0 Eos % (Auto) 1.9 Baso % (Auto) 1.9 H Absolute Neuts (auto) 0.2 L Absolute Lymphs (auto) 0.34 L Total Counted Not Reportable Differential Comment SCANNED Diff Path Review May foll Platelet Estimate MKD DEC Plt Morphology Comment LARGE PT INR Sodium Potassium Chloride Carbon Dioxide Anion Gap BUN Creatinine Estim Creat Clear Calc Est GFR (MDRD) Af Amer Est GFR (MDRD) Non-Af BUN/Creatinine Ratio Glucose Lactic Acid 1.6 Calcium Troponin I Urine Color Yellow Urine Clarity Sl. Cloudy Urine pH 6.0 Ur Specific [place] 1.020 Urine Protein 100 H Urine Glucose (UA) 50 H Urine Ketones 5 H Urine Occult Blood 25 H Urine Nitrite Negative Urine Bilirubin 3 H Urine Urobilinogen 8 H Ur Leukocyte Esterase 500 H Urine RBC 0 SEEN Urine WBC 5-10 SEEN Ur Squamous Epith Cells 0 SEEN Urine Bacteria 0 SEEN WBC Casts 0-5 SEEN Urine Mucus 0 SEEN 07/14/18 07/14/18 07:18 07:18 WBC RBC Hgb Hct MCV MCH MCHC RDW RDW Differential Plt Count MPV Immature Gran % (Auto) Neut % (Auto) Lymph % (Auto) [place] % (Auto) Eos % (Auto) Baso % (Auto) Absolute Neuts (auto) Absolute Lymphs (auto) Total Counted Differential Comment Diff Path Review Platelet Estimate Plt Morphology Comment PT 15.6 H INR 1.2 Sodium 138 Potassium 3.9 Chloride 108 H Carbon Dioxide 21.0 Anion Gap 9 BUN 39 H Creatinine 0.88 Estim Creat Clear Calc 78.24 Est GFR (MDRD) Af Amer 112 Est GFR (MDRD) Non-Af 93 BUN/Creatinine Ratio 44.5 H Glucose 132 H Lactic Acid Calcium 8.2 L Troponin I Urine Color Urine Clarity Urine pH Ur Specific [place] Urine Protein Urine Glucose (UA) Urine Ketones Urine Occult Blood Urine Nitrite Urine Bilirubin Urine Urobilinogen Ur Leukocyte Esterase Urine RBC Urine WBC Ur Squamous Epith Cells Urine Bacteria WBC Casts Urine Mucus Assessment/Plan All Active Problems Severe sepsis (Acute) Pleural effusion (Acute) Neutropenia (Acute) Cystitis (Acute) Assesment/Plan 1. Neutropenia. Will start Filgrastim 489 mcg/day. On Cefepine. Blood cultures drawn. No area that can be isolated as the source of infection. No chest pain or readness on the Right chest wall. 2. Stage 3B Non small cell lung cancer. The patient was given chemotherapy 10 dayus back with Carboplatium, Alimta and Kytruda. Did not receive neulasta. 3. Soreness in the mouth. Will add diflucan Will follow with the primary service. Thomas Macario MD
[2018-07-14] MEDS: Sodium Chloride 0.65% 1 SPRAY SPRAY.BTL 2 SPRAY NASAL (12:11)
--- NOTE | 2018-07-14 13:25 | CASEMGMT ---
RN ISAC Face to Face with patient for initial transition planning/care coordination assessment. RN CM introduced self and role at [facility]. Patient lying in bed, alert and oriented. Patient willing to participate in assessment and is able to answer all questions appropriately. Care providers, pharmacy, and demographics verified. Patient wishes to discharge home, denies need for home health at this time. Patient states he has no further needs or concerns at this time. CM to follow for discharge planning needs that may arise. PCP: DEV Santiago Specialists: Hussein, oncologist Preferred Pharmacy: [facility] Insurance: [facility], [facility] Prescription Benefit: YEs Living Will/HPOA: Yes, significant other, Natalie Walter HPOA LNOK: Significant other and daughter Living Arrangements: Patient lives with Significant other in 3 story home. Patient is independent at home. Transportation: Significant other DME/HHC: Patient had oxygen with portability and concentrator at home as well as nebulizer. Declined additional needs and HHC Disposition Plan: Patient to discharge home with family support and follow-up plans in place. Betty LEIJA, RN, CM
[2018-07-14] MEDS: TBO-FILGRASTIM 480 MCG/0.8 ML ML SC (14:10)
[2018-07-14] MEDS: Loperamide 2 MG Capsule PO (14:23)
[2018-07-14] MEDS: Saliva Substitute 237 ML BOTTLE 15 ML MM (20:09)
--- NOTE | 2018-07-14 20:18 | NURSING ---
Pt sitting at bedside, fiance in chairs. Begins to vomit equaling 600cc's, with increased blood tinged sputum and a nose bleed. Informed Dr. Arsenio Lloyd, orders noted under physician notification.
[2018-07-14] MEDS: proCHLORPERazine 10 MG/2 ML Vial 5 MG IV (22:20)
[2018-07-15] VITALS (9 sets, daily range): BP systolic 114–140; BP diastolic 67–73; PULSE 86–100; RESP 16–18; TEMP 36.5–37.1; O2SAT 94–96
[2018-07-15] MEDS: Ondansetron 4 MG/2 ML Vial IV (01:33)
[2018-07-15] MEDS: HYDROcodone Bitartrate/Apap 5/325 Tablet PO ×3 (03:20→16:36)
[2018-07-15] MEDS: Ibuprofen 400 MG Tablet 800 MG PO ×2 (03:21→11:35)
[2018-07-15] MEDS: Folic Acid 1 MG Tablet PO (07:52)
[2018-07-15 08:01] LABS: Absolute Lymphocyte Count 0.51 X10^3/ul (0.83-4.51); Absolute Neutrophil Count 0.1 X10^3/uL (2.0-7.7); Basophil# 0.01 X10^3/uL; Basophil% 1.6 % (0-1); Hematocrit 35.9 % (40-54); Hemoglobin 11.2 g/dl (13.0-16.5); Lymphocyte # 0.51 X10^3/ul (4.0); Lymphocyte % 83.6 % (19-41); Mean Corp Hgb Conc 31.2 g/gl (32-36); Mean Corpuscular Hgb 25.8 pg (27.0-32.0); Mean Corpuscular Volume 82.7 fL (80-94); Mean Platelet Vol. 9.7 fl (6.2-12.0); Neutrophil # 0.09 X10^3/uL (2.7-7.7); Neutrophil % 14.8 % (47-70); RBC Distribution Width CV 14.5 % (11.6-14.6); RBC Distribution Width SD 44.3 fl (35.1-43.9); Red Blood Count 4.34 M/mm3 (4.6-6.2)
[2018-07-15 08:02] LABS: Differential Indicated SCAN CRITERIA MET; POSITIVE COUNT YES; POSITIVE DIFFERENTIAL YES; POSITIVE MORPHOLOGY YES; Platelet Count 37 K/mm3 (150-450); White Blood Count 0.6 K/mm3 (4.4-11.0)
[2018-07-15] MEDS: Ipratropium/Albuterol Sulfate 3 ML AMPUL.NEB INHALATION ×5 (08:04→23:00)
[2018-07-15 08:16] LABS: Anion Gap 9 (5-15); BUN 33 mg/dL (7-18); BUN/Creat Ratio 40.4 RATIO (10-20); Calcium,Total 7.9 mg/dL (8.5-10.1); Chloride 113 mmol/L (98-107); Creatinine, Serum 0.82 mg/dL (0.70-1.30); EST Glomerular Filtration Rate 101 mL/min (>60); Est Glom Filt Rate - Afr Amer 122 mL/min (>60); Estimated Creatinine Clearance 83.97 ml/min; Glucose 123 mg/dL (74-106); Potassium 4.1 mmol/L (3.5-5.1); Sodium Level 142 mmol/L (136-145)
[2018-07-15 09:02] LABS: Platelet Estimate MKD DEC (ADEQ)
--- NOTE | 2018-07-15 09:47 | PCM.PN.HOSP ---
Patient Problems: Active and Suspected Problems Severe sepsis (Acute) Pleural effusion (Acute) Neutropenia (Acute) Cystitis (Acute) Subjective: still with some shortness of breath. no new events overnight. Vitals/I&O's: Vital Signs Temp Pulse Resp BP Pulse Ox 36.8 C 91 18 132/70 H 96 07/15/18 07:42 07/15/18 08:05 07/15/18 08:05 07/15/18 07:42 07/15/18 08:05 Oxygen Flow Rate (L/min) 4 Oxygen Delivery Method Nasal Cannula Weight: 89.5 kg Body Mass Index (BMI) 30.9 Intake and Output for Last 24 Hours 07/13/18 07/14/18 07/15/18 23:59 23:59 22:59 Intake Total 250 / 250 1412 / 1412 1939 Output Total 860 / 860 Balance 250 / 250 552 / 552 1939 General: Alert, No apparent distress HEENT: Atraumatic, Normocephalic Oral: Moist Mucosa, - - scabbed over blood on palate. posterior pharyngeal thrush. Neck: No Nodes, Thyroid Normal Size and Texture Lungs: Diminished, - - coarse BS. DTP RLL. Cardiovascular: Regular rate, Regular Rhythm, Normal S1, Normal S2, No murmurs Abdomen: Bowel Sounds Present, Soft, Non Tender, Non-Distended Extremities: No edema, No Calf Tenderness Skin: No rashes, No breakdown Psych/Mental Status: Normal Affect, Appropriate Laboratory Results 07/15/18 07:25: WBC 0.6 L*, RBC 4.34 L, Hgb 11.2 L, Hct 35.9 L, MCV 82.7, MCH 25.8 L, MCHC 31.2 L, RDW 14.5, RDW Differential 44.3 H, Plt Count 37 L*, MPV 9.7, Immature Gran % (Auto) 0.000, Neut % (Auto) 14.8 L, Lymph % (Auto) 83.6 H, [place] % (Auto) 0.0, Eos % (Auto) 0.0, Baso % (Auto) 1.6 H, Absolute Neuts (auto) 0.1 L, Absolute Lymphs (auto) 0.51 L, Total Counted Not Reportable, Differential Comment , Diff Path Review May foll, Platelet Estimate MKD 07/15/18 07:25: Sodium 142, Potassium 4.1, Chloride 113 H, Carbon Dioxide 20.0 L, Anion Gap 9, BUN 33 H, Creatinine 0.82, Estim Creat Clear Calc 83.97, Est GFR (MDRD) Af Amer 122, Est GFR (MDRD) Non-Af 101, BUN/Creatinine Ratio 40.4 H, Glucose 123 H, Calcium 7.9 L Current Medications Hydrocodone Bitart/Acetaminophen ([place] 5mg-325mg) 1 tablet PO Q6H PRN PRN PRN Reason: PAIN Last Admin: 07/15/18 03:20 Dose: 1 tablet Albuterol/Ipratropium (Duoneb) 3 ml INHALATION Q4H.RT [facility] Last Admin: 07/15/18 08:04 Dose: 3 ml Dronabinol (Marinol) 5 mg PO BID [facility] Last Admin: 07/14/18 22:24 Dose: 5 mg Fluconazole (Diflucan) 200 mg PO DAILY [facility] Folic Acid (Folic Acid) 1 mg PO DAILY@0800 [facility] Last Admin: 07/15/18 07:52 Dose: 1 mg Cefepime HCl 2 gm/ Sodium (Chloride) 100 mls @ 200 mls/hr IV 2200 [facility] Last Admin: 07/14/18 22:24 Dose: 200 mls/hr Potassium Chloride/Sodium Chloride () 1,000 mls @ 100 mls/hr IV .Q10H [facility] Last Admin: 07/15/18 07:57 Dose: 100 mls/hr Ibuprofen (Motrin) 800 mg PO Q6H PRN PRN PRN Reason: PAIN Last Admin: 07/15/18 03:21 Dose: 800 mg Lidocaine HCl (Xylocaine Viscous) 10 ml PO Q3H PRN PRN Reason: painful mouth Lidocaine/Diphenhydr/Alum/Mg/Simeth () 5 ml PO Q4H PRN PRN PRN Reason: PAIN Last Admin: 07/13/18 23:01 Dose: 5 ml Loperamide HCl (Imodium) 2 mg PO Q2H PRN PRN PRN Reason: Diarrhea Last Admin: 07/14/18 14:23 Dose: 2 mg Magnesium Hydroxide (Milk Of Magnesia) 30 ml PO DAILY PRN PRN PRN Reason: Constipation Nutritional Formula (Lactose Free) (Ensure Enlive) 120 ml PO 4X/DAY [facility] Last Admin: 07/14/18 22:24 Dose: Not Given Ondansetron HCl (Zofran) 4 mg IV Q8H PRN PRN PRN Reason: NAUSEA Last Admin: 07/15/18 01:33 EST Dose: 4 mg Ondansetron HCl (Zofran) 8 mg PO Q8H PRN PRN PRN Reason: nausea Pantoprazole Sodium (Protonix) 40 mg PO DAILY [facility] Last Admin: 07/14/18 09:38 Dose: 40 mg Prochlorperazine Edisylate (Compazine Iv) 5 mg IV Q6H PRN PRN PRN Reason: NAUSEA/VOMITING Last Admin: 07/14/18 22:20 Dose: 5 mg Sertraline HCl (Zoloft) 50 mg PO DAILY [facility] Last Admin: 07/14/18 09:38 Dose: 50 mg Sodium Chloride () 5 - 30 ml IV UD PRN PRN Reason: SALINE FLUSH Last Admin: 07/14/18 17:29 Dose: 10 ml Sodium Chloride ([place] Nasal [place]) 2 spray NASAL TID PRN PRN PRN Reason: NASAL DRYNESS Last Admin: 07/14/18 12:11 Dose: 2 spray Tbo-Filgrastim (Granix) 480 mcg SC DAILY [facility] Stop: 07/16/18 10:01 Last Admin: 07/14/18 14:10 Dose: 480 mcg Zolpidem Tartrate (Ambien (Generic)) 5 mg PO QHS PRN PRN PRN Reason: INSOMNIA Medical Necessity - Tobacco Use Smoking Status: Former smoker Assessment/Plan All Active Problems Severe sepsis (Acute) Pleural effusion (Acute) Neutropenia (Acute) Cystitis (Acute) 1. Severe sepsis: POA improved unclear etiology (pneumonia, UTI) lactate normalized follow up blood and urine cultures check urinary antigens for strep and legionella on empiric cefepime 2. Neutropenia equivocal from yesterday. no fever oncology on consult likely due to chemotherapy started on Filgrastim by oncology monitor 3. Pleural effusion presumably malignant thoracentesis for 07/16 has had previous thoracenteses consider pleur-x catheter for palliation 4. Stage IV lung cancer (NSCLC?) per patient on chemo and immunotherapy oncology on consult palliative care consulted 5. Nausea likely chemo related check AXR to eval for ileus supportive mgmt 6. Dry mouth start biotene, lidocaine improved blood on palate, may be due to abrasion from top dentures. wound appears to be drying up. 7. Thrush started on Diflucan Code Visit Inpatient E&M: 96354 Subs Hosp L2
[2018-07-15] MEDS: Pantoprazole Sodium 40 MG Tablet PO (09:55)
[2018-07-15] MEDS: Sertraline 50 MG Tablet PO (09:55)
--- NOTE | 2018-07-15 09:55 | PN_ITS ---
Patient Problems: Active and Suspected Problems Severe sepsis (Acute) Pleural effusion (Acute) Neutropenia (Acute) Cystitis (Acute) Subjective: still with some shortness of breath. no new events overnight. Vitals/I&O's: Vital Signs Temp Pulse Resp BP Pulse Ox 36.8 C 91 18 132/70 H 96 07/15/18 07:42 07/15/18 08:05 07/15/18 08:05 07/15/18 07:42 07/15/18 08:05 Oxygen Flow Rate (L/min) 4 Oxygen Delivery Method Nasal Cannula Weight: 89.5 kg Body Mass Index (BMI) 30.9 Intake and Output for Last 24 Hours 07/13/18 07/14/18 07/15/18 23:59 23:59 22:59 Intake Total 250 / 250 1412 / 1412 1939 Output Total 860 / 860 Balance 250 / 250 552 / 552 1939 General: Alert, No apparent distress HEENT: Atraumatic, Normocephalic Oral: Moist Mucosa, - - scabbed over blood on palate. posterior pharyngeal thrush. Neck: No Nodes, Thyroid Normal Size and Texture Lungs: Diminished, - - coarse BS. DTP RLL. Cardiovascular: Regular rate, Regular Rhythm, Normal S1, Normal S2, No murmurs Abdomen: Bowel Sounds Present, Soft, Non Tender, Non-Distended Extremities: No edema, No Calf Tenderness Skin: No rashes, No breakdown Psych/Mental Status: Normal Affect, Appropriate Laboratory Results 07/15/18 07:25: WBC 0.6 L*, RBC 4.34 L, Hgb 11.2 L, Hct 35.9 L, MCV 82.7, MCH 25.8 L, MCHC 31.2 L, RDW 14.5, RDW Differential 44.3 H, Plt Count 37 L*, MPV 9.7, Immature Gran % (Auto) 0.000, Neut % (Auto) 14.8 L, Lymph % (Auto) 83.6 H, [place] % (Auto) 0.0, Eos % (Auto) 0.0, Baso % (Auto) 1.6 H, Absolute Neuts (auto) 0.1 L, Absolute Lymphs (auto) 0.51 L, Total Counted Not Reportable, Differential Comment , Diff Path Review May foll, Platelet Estimate MKD 07/15/18 07:25: Sodium 142, Potassium 4.1, Chloride 113 H, Carbon Dioxide 20.0 L , Anion Gap 9, BUN 33 H, Creatinine 0.82, Estim Creat Clear Calc 83.97, Est GFR (MDRD) Af Amer 122, Est GFR (MDRD) Non-Af 101, BUN/Creatinine Ratio 40.4 H, Glucose 123 H, Calcium 7.9 L Current Medications Hydrocodone Bitart/Acetaminophen ([place] 5mg-325mg) 1 tablet PO Q6H PRN PRN PRN Reason: PAIN Last Admin: 07/15/18 03:20 Dose: 1 tablet Albuterol/Ipratropium (Duoneb) 3 ml INHALATION Q4H.RT [facility] Last Admin: 07/15/18 08:04 Dose: 3 ml Dronabinol (Marinol) 5 mg PO BID [facility] Last Admin: 07/14/18 22:24 Dose: 5 mg Fluconazole (Diflucan) 200 mg PO DAILY [facility] Folic Acid (Folic Acid) 1 mg PO DAILY@0800 [facility] Last Admin: 07/15/18 07:52 Dose: 1 mg Cefepime HCl 2 gm/ Sodium (Chloride) 100 mls @ 200 mls/hr IV 2200 [facility] Last Admin: 07/14/18 22:24 Dose: 200 mls/hr Potassium Chloride/Sodium Chloride () 1,000 mls @ 100 mls/hr IV .Q10H [facility] Last Admin: 07/15/18 07:57 Dose: 100 mls/hr Ibuprofen (Motrin) 800 mg PO Q6H PRN PRN PRN Reason: PAIN Last Admin: 07/15/18 03:21 Dose: 800 mg Lidocaine HCl (Xylocaine Viscous) 10 ml PO Q3H PRN PRN Reason: painful mouth Lidocaine/Diphenhydr/Alum/Mg/Simeth () 5 ml PO Q4H PRN PRN PRN Reason: PAIN Last Admin: 07/13/18 23:01 Dose: 5 ml Loperamide HCl (Imodium) 2 mg PO Q2H PRN PRN PRN Reason: Diarrhea Last Admin: 07/14/18 14:23 Dose: 2 mg Magnesium Hydroxide (Milk Of Magnesia) 30 ml PO DAILY PRN PRN PRN Reason: Constipation Nutritional Formula (Lactose Free) (Ensure Enlive) 120 ml PO 4X/DAY [facility] Last Admin: 07/14/18 22:24 Dose: Not Given Ondansetron HCl (Zofran) 4 mg IV Q8H PRN PRN PRN Reason: NAUSEA Last Admin: 07/15/18 01:33 EST Dose: 4 mg Ondansetron HCl (Zofran) 8 mg PO Q8H PRN PRN PRN Reason: nausea Pantoprazole Sodium (Protonix) 40 mg PO DAILY [facility] Last Admin: 07/14/18 09:38 Dose: 40 mg Prochlorperazine Edisylate (Compazine Iv) 5 mg IV Q6H PRN PRN PRN Reason: NAUSEA/VOMITING Last Admin: 07/14/18 22:20 Dose: 5 mg Sertraline HCl (Zoloft) 50 mg PO DAILY [facility] Last Admin: 07/14/18 09:38 Dose: 50 mg Sodium Chloride () 5 - 30 ml IV UD PRN PRN Reason: SALINE FLUSH Last Admin: 07/14/18 17:29 Dose: 10 ml Sodium Chloride ([place] Nasal [place]) 2 spray NASAL TID PRN PRN PRN Reason: NASAL DRYNESS Last Admin: 07/14/18 12:11 Dose: 2 spray Tbo-Filgrastim (Granix) 480 mcg SC DAILY [facility] Stop: 07/16/18 10:01 Last Admin: 07/14/18 14:10 Dose: 480 mcg Zolpidem Tartrate (Ambien (Generic)) 5 mg PO QHS PRN PRN PRN Reason: INSOMNIA Medical Necessity - Tobacco Use Smoking Status: Former smoker Assessment/Plan All Active Problems Severe sepsis (Acute) Pleural effusion (Acute) Neutropenia (Acute) Cystitis (Acute) 1. Severe sepsis: * POA * improved * unclear etiology (pneumonia, UTI) * lactate normalized * follow up blood and urine cultures * check urinary antigens for strep and legionella * on empiric cefepime 2. Neutropenia * equivocal from yesterday. * no fever * oncology on consult * likely due to chemotherapy * started on Filgrastim by oncology * monitor 3. Pleural effusion * presumably malignant * thoracentesis for 07/16 * has had previous thoracenteses * consider pleur-x catheter for palliation 4. Stage IV lung cancer (NSCLC?) * per patient on chemo and immunotherapy * oncology on consult * palliative care consulted 5. Nausea * likely chemo related * check AXR to eval for ileus * supportive mgmt 6. Dry mouth * start biotene, lidocaine * improved * blood on palate, may be due to abrasion from top dentures. wound appears to be drying up. 7. Thrush * started on Diflucan Code Visit Inpatient E&M: 47719 Subs Hosp L2
--- NOTE | 2018-07-15 10:47 | RAD_ITS ---
STUDY: X-RAY - ABDOMEN/PELVIS REASON FOR EXAM: Male, 63 years old. Abdominal pain TECHNIQUE: Two AP supine views of the abdomen and pelvis. COMPARISON: None. FINDINGS: Normal visualized lung bases. Scattered gaseous distended loops of colon without evidence of obstruction. Normal appearance of the small bowel. There is no demonstrated free abdominal air. The visualized liver, spleen and kidneys are grossly normal in size and morphology. Normal soft tissue structures. There are diffuse degenerative changes of the visualized lumbar spine. RAD/Abdomen Single View IMPRESSION: No evidence of small bowel obstruction. Scattered gaseous distended loops of colon. Electronically Signed: Rosalio Degroot DO at 11:31 EST Tel , Service support ,
[2018-07-15] MEDS: Fluconazole 100 MG Tablet 200 MG PO (11:35)
[2018-07-15] MEDS: Dronabinol 2.5 MG Capsule 5 MG PO ×2 (12:36→22:59)
[2018-07-15] MEDS: TBO-FILGRASTIM 480 MCG/0.8 ML ML SC (12:36)
[2018-07-15] MEDS: proCHLORPERazine 10 MG/2 ML Vial 5 MG IV (17:51)
[2018-07-15] MEDS: Sodium Chloride 0.65% 1 SPRAY SPRAY.BTL 2 SPRAY NASAL (17:58)
[2018-07-16] VITALS (13 sets, daily range): BP systolic 106–137; BP diastolic 61–79; PULSE 92–110; RESP 16–24; TEMP 36.3–36.9; O2SAT 94–97
[2018-07-16] MEDS: proCHLORPERazine 10 MG/2 ML Vial 5 MG IV ×2 (01:19→10:48)
[2018-07-16] MEDS: Ipratropium/Albuterol Sulfate 3 ML AMPUL.NEB INHALATION ×5 (07:26→22:42)
[2018-07-16 07:59] LABS: Hematocrit 34.2 % (40-54); Hemoglobin 10.7 g/dl (13.0-16.5); Mean Corp Hgb Conc 31.3 g/gl (32-36); Mean Corpuscular Hgb 26.1 pg (27.0-32.0); Mean Corpuscular Volume 83.4 fL (80-94); Mean Platelet Vol. 11.2 fl (6.2-12.0); RBC Distribution Width CV 14.5 % (11.6-14.6); RBC Distribution Width SD 43.6 fl (35.1-43.9)
[2018-07-16 08:02] LABS: Differential Indicated MANUAL DIFF; POSITIVE COUNT YES; POSITIVE DIFFERENTIAL YES; POSITIVE MORPHOLOGY YES; Platelet Count 20 K/mm3 (150-450); White Blood Count 0.6 K/mm3 (4.4-11.0)
[2018-07-16 08:03] LABS: International Normalized Ratio 1.4; Prothrombin Time (Protime)PT. 16.7 SECONDS (11.7-14.9)
--- NOTE | 2018-07-16 08:06 | PN_ITS ---
Patient Problems: Active and Suspected Problems Severe sepsis (Acute) Pleural effusion (Acute) Neutropenia (Acute) Cystitis (Acute) Subjective: Patient complaint of mild sore and diarrhea this morning. Mild shortness of breath continue. No fever, nausea or vomiting. He is scheduled for a diagnostic/therapeutic thoracentesis this morning. Should continue to be on cefepime and Diflucan for neutropenia secondary to chemotherapy. He is chronic lower back pain. - Physical Exam General: Alert, Oriented x3, No apparent distress Oral: Dry Mucosa, - - + Stomatitis no thrush. Neck: Supple, No JVD, No Nodes Lungs: No wheeze, No rales, Diminished, - - Dullness to percussion more pronounced on the right lung base. Cardiovascular: Normal S1, Normal S2, No murmurs, Tachycardic Abdomen: Soft, Non Tender, Non-Distended, Hypoactive Bowel Sounds Extremities: No clubbing, No cyanosis, No edema Skin: No rashes, No breakdown Musculoskeletal: No Tenderness to Palpation of Joints or Extremities Lymphatic: No Cervical, Supraclavicular, or Inguinal Adenopathy Neurological: Neuro grossly intact Psych/Mental Status: Normal Affect Vital Signs Temp Pulse Resp BP Pulse Ox 98.1 F 108 H 16 119/62 94 07/16/18 01:22 07/16/18 01:22 07/16/18 01:22 07/16/18 01:22 07/16/18 01:22 Oxygen Flow Rate (L/min) 4 Oxygen Delivery Method Nasal Cannula Weight: 197 lb 5.019 oz Body Mass Index (BMI) 30.9 Intake and Output for Last 24 Hours 07/15/18 07/15/18 07/16/18 00:59 23:59 23:59 Intake Total 967 / 967 Output Total Balance 967 / 967 Microbiology Past 72 Hours 07/15/18 17:56 Streptococcus pneumoniae Antigen (M - Final Urine, Clean Catch 07/15/18 17:56 Legionella Antigen - Final Urine, Clean Catch 07/13/18 19:30 Urine Culture - Final Urine, Clean Catch Mixed Gram Positive Organisms Laboratory Tests Past 24 Hrs 07/15/18 07/15/18 07:25 07:25 WBC 0.6 L* RBC 4.34 L Hgb 11.2 L Hct 35.9 L MCV 82.7 MCH 25.8 L MCHC 31.2 L RDW 14.5 RDW Differential 44.3 H Plt Count 37 L* MPV 9.7 Immature Gran % (Auto) 0.000 Neut % (Auto) 14.8 L Lymph % (Auto) 83.6 H [place] % (Auto) 0.0 Eos % (Auto) 0.0 Baso % (Auto) 1.6 H Absolute Neuts (auto) 0.1 L Absolute Lymphs (auto) 0.51 L Total Counted Not Reportable Differential Comment Diff Path Review May foll Platelet Estimate MKD DEC Sodium 142 Potassium 4.1 Chloride 113 H Carbon Dioxide 20.0 L Anion Gap 9 BUN 33 H Creatinine 0.82 Estim Creat Clear Calc 83.97 Est GFR (MDRD) Af Amer 122 Est GFR (MDRD) Non-Af 101 BUN/Creatinine Ratio 40.4 H Glucose 123 H Calcium 7.9 L Medical Necessity - Tobacco Use Smoking Status: Former smoker Assessment/Plan All Active Problems Severe sepsis (Acute) Pleural effusion (Acute) Neutropenia (Acute) Cystitis (Acute) Assesment/Plan 1. Neutropenia secondary to chemotherapy; - continue filgrastim 489 mcg/day & Cefepine. Blood cultures drawn. No area that can be isolated as the source of infection. No chest pain or redness on the Right chest wall. -Monitor CBC daily. -Stop antibiotics if blood cultures are negative and ANCs > 1000 2. Stage 3B Non small cell lung cancer. The patient was given chemotherapy 10 days ago with Carboplatin, Alimta and Kytruda. Did not receive Neulasta. -Patient had previous chest tube in his right lung; pleural fluid was loculated -Attempt thoracentesis today in radiology. -Continue oxygen; nebulizer treatment every 6 hours [id number] -Consider adjusting doses of subsequent chemotherapy- adding Neulasta with subsequent treatment as secondary prophylaxis for neutropenia. 3. Stomatitis and mucositis secondary to chemotherapy; -Continue Diflucan and BMX suspension as needed -Morphine 5 mg every 2 hours as needed for pain -Good oral care and encourage increase oral fluids. -IV to KVO -Consult nutrition therapy 4. Thrombocytopenia secondary to chemotherapy -Hold heparin DVT prophylaxis until platelets > 50,000 -SHAYNA hoses, ambulate and SCDs in bed. cc: Dr. Irina Savage; Dr. Arsenio Pedro; GINGER Recinos
[2018-07-16 08:31] LABS: Anion Gap 10 (5-15); BUN 25 mg/dL (7-18); BUN/Creat Ratio 41.2 RATIO (10-20); Calcium,Total 7.9 mg/dL (8.5-10.1); Chloride 116 mmol/L (98-107); Creatinine, Serum 0.61 mg/dL (0.70-1.30); EST Glomerular Filtration Rate 142 mL/min (>60); Est Glom Filt Rate - Afr Amer 171 mL/min (>60); Estimated Creatinine Clearance 112.88 ml/min; Glucose 116 mg/dL (74-106); Potassium 3.9 mmol/L (3.5-5.1); Sodium Level 143 mmol/L (136-145)
[2018-07-16] MEDS: morphine (oral solution) 10MG/0.5ML Syringe 5 MG PO (08:39)
[2018-07-16] MEDS: Pantoprazole Sodium 40 MG Tablet PO (08:41)
[2018-07-16] MEDS: Folic Acid 1 MG Tablet PO (08:41)
[2018-07-16] MEDS: Fluconazole 100 MG Tablet 200 MG PO (08:41)
[2018-07-16] MEDS: Sertraline 50 MG Tablet PO (08:43)
[2018-07-16 09:03] LABS: Lymphocyte 84 % (19-41); Monocyte 4 % (0-10); Neutrophil-Segmented 12 % (47-70); Platelet Estimate MKD DEC (ADEQ); Red Cell Morphology NORM C+C NORMAL (NORM C&C); Total Cells Counted 100 (MANUAL DIFF)
[2018-07-16 09:04] LABS: Absolute Neutrophil Count 0.1 X10^3/uL (2.0-7.7)
[2018-07-16] MEDS: Dronabinol 2.5 MG Capsule 5 MG PO ×2 (10:26→21:05)
[2018-07-16] MEDS: TBO-FILGRASTIM 480 MCG/0.8 ML ML SC (10:26)
[2018-07-16] MEDS: 0.9% NaCl Peripheral Flush Adult/Peds IV ×4 (10:50→23:44)
--- NOTE | 2018-07-16 11:59 | RAD_ITS ---
STUDY: X-RAY CHEST REASON FOR EXAM: Male, 63 years old. Pleural effusion. TECHNIQUE: Frontal and lateral views of the chest. COMPARISON: 07/13/2018. FINDINGS: Again seen is underlying hyperexpansion of the lungs and diffuse interstitial prominence suggestive of fibrosis. Again seen is more prominent density throughout much of the right lung especially in the mid and lower lung [place] where there is probable atelectasis or infiltrate and/or scarring. Stable appearance of a moderate right pleural effusion. Normal size heart. Normal mediastinum and ashley. Normal visualized pulmonary arteries. Normal visualized aortic arch and descending thoracic aorta. Normal visualized thoracic spine. Normal visualized ribs, clavicles, and shoulders. There is no demonstrated abnormality of the visualized soft tissue structures of the upper abdomen. RAD/Chest PA and Lateral IMPRESSION: Little if any significant change. COPD. Probable fibrosis. Atelectasis or infiltrate versus scarring in the right lung with moderate pleural effusion. Electronically Signed: Miles Gomez MD at 16:12 EST , Service support ,
--- NOTE | 2018-07-16 12:15 | RAD_ITS ---
STUDY: X-RAY CHEST REASON FOR EXAM: Male, 63 years old. Pleural effusion. TECHNIQUE: Bilateral decubitus views. COMPARISON: PA and lateral views of the same date.. FINDINGS: Right side down decubitus film shows soft tissue density in the lower right hemithorax and along the lateral aspect of the right lung without significant layering fluid. Findings are more consistent with pleural thickening and possibly loculated effusion. The left side down decubitus shows similar findings. No change on the right, and no evidence for pleural effusion on the left. RAD/Special CXR (Obl/Decub/A/L) IMPRESSION: The decubitus views do not show significant layering of fluid. Electronically Signed: Miles Gomez MD at 16:28 EST , Service support ,
--- NOTE | 2018-07-16 12:16 | RAD_ITS ---
STUDY: X-RAY CHEST REASON FOR EXAM: Male, 63 years old. Pleural effusion. TECHNIQUE: Bilateral decubitus views. COMPARISON: PA and lateral views of the same date.. FINDINGS: Right side down decubitus film shows soft tissue density in the lower right hemithorax and along the lateral aspect of the right lung without significant layering fluid. Findings are more consistent with pleural thickening and possibly loculated effusion. The left side down decubitus shows similar findings. No change on the right, and no evidence for pleural effusion on the left. RAD/Special CXR (Obl/Decub/A/L) IMPRESSION: The decubitus views do not show significant layering of fluid. Electronically Signed: Miles Gomez MD at 16:29 EST , Service support ,
[2018-07-16] MEDS: HYDROcodone Bitartrate/Apap 5/325 Tablet PO ×2 (13:31→21:05)
[2018-07-16 15:31] LABS: Pathologist Review Reviewed
[2018-07-16 15:33] LABS: Pathologist Review Reviewed
[2018-07-16 15:35] LABS: Pathologist Review Reviewed
--- NOTE | 2018-07-16 17:45 | PN_ITS ---
Patient Problems: Active and Suspected Problems Pleural effusion (Acute) Neutropenia (Acute) Subjective: Patient was seen and examined today, I talked with his oncologist today Dr. Savage, thoracentesis was not able to be performed today due to the fact that his platelet count is low and he is neutropenic. Dr. Savage suggested that I get a lateral decubitus view of the right lung to see if the pleural effusion was loculated-it appears to be loculated and so I have canceled the thoracentesis. Also, patient was not getting Granix yesterday or today and I have talked to Dr. Savage about it and it has been ordered. Patient remains pancytopenic - Physical Exam General: Alert, Oriented x3, Cooperative, No apparent distress, Well developed HEENT: Atraumatic, PERRLA, EOMI, Normocephalic Oral: Moist Mucosa Neck: Supple, No JVD, No Nuchal Rigidity, Trachea Midline, Thyroid Normal Size and Texture Lungs: No rhonchi, No wheeze, Diminished - Over the right lower lung Cardiovascular: Regular rate, Regular Rhythm, Normal S1, Normal S2, No murmurs, No Ectopic Activity, PMI Normal, No rub noted, No Gallop Abdomen: Bowel Sounds Present, Soft, Non Tender, Non-Distended, No hernias noted Extremities: No clubbing, No cyanosis, No edema, Capillary Refill Less than 3 Seconds Skin: No rashes, No breakdown Musculoskeletal: No Tenderness to Palpation of Joints or Extremities Neurological: Cranial nerves II-XII grossly intact, Neuro grossly intact, Se nsory exam intact to light touch and pain, Coordination normal Psych/Mental Status: Normal Affect, Appropriate, Alert and oriented to time, place, person, mood and affect Vital Signs Temp Pulse Resp BP Pulse Ox 98.2 F 105 H 20 H 106/61 95 07/16/18 15:27 07/16/18 15:27 07/16/18 15:27 07/16/18 15:27 07/16/18 15:27 Oxygen Flow Rate (L/min) 4 Oxygen Delivery Method Nasal Cannula Weight: 89.5 kg Body Mass Index (BMI) 30.9 Intake and Output for Last 24 Hours 07/15/18 07/15/18 07/16/18 00:59 23:59 23:59 Intake Total 1217 / 1217 Output Total Balance 1217 / 1217 Microbiology Past 72 Hours 07/13/18 20:27 Blood Culture - Preliminary Blood Culture (Wb) - Anticubital Right No growth in 48 hours. 07/13/18 20:27 Blood Culture - Preliminary Blood Culture (Wb) - Anticubital Left No growth in 48 hours. 07/15/18 17:56 Streptococcus pneumoniae Antigen (M - Final Urine, Clean Catch 07/15/18 17:56 Legionella Antigen - Final Urine, Clean Catch 07/13/18 19:30 Urine Culture - Final Urine, Clean Catch Mixed Gram Positive Organisms Laboratory Tests Past 24 Hrs 07/13/18 07/14/18 07/15/18 18:58 07:18 07:25 WBC RBC Hgb Hct MCV MCH MCHC RDW RDW Differential Plt Count MPV Neut % (Auto) Absolute Neuts (auto) Absolute Lymphs (auto) Total Counted Neutrophils % (Manual) Lymphocytes % (Manual) Monocytes % (Manual) Diff Path Review Reviewed Reviewed Reviewed Platelet Estimate RBC Morphology PT INR Sodium Potassium Chloride Carbon Dioxide Anion Gap BUN Creatinine Estim Creat Clear Calc Est GFR (MDRD) Af Amer Est GFR (MDRD) Non-Af BUN/Creatinine Ratio Glucose Calcium 07/16/18 07/16/18 07/16/18 07:27 07:27 07:27 WBC 0.6 L* RBC 4.10 L Hgb 10.7 L Hct 34.2 L MCV 83.4 MCH 26.1 L MCHC 31.3 L RDW 14.5 RDW Differential 43.6 Plt Count 20 L* MPV 11.2 Neut % (Auto) Not Reportable Absolute Neuts (auto) 0.1 L Absolute Lymphs (auto) 0.50 L Total Counted 100 Neutrophils % (Manual) 12 L Lymphocytes % (Manual) 84 H* Monocytes % (Manual) 4 Diff Path Review May foll Platelet Estimate MKD DEC RBC Morphology NORM C+C PT 16.7 H INR 1.4 Sodium 143 Potassium 3.9 Chloride 116 H Carbon Dioxide 17.0 L Anion Gap 10 BUN 25 H Creatinine 0.61 L Estim Creat Clear Calc 112.88 Est GFR (MDRD) Af Amer 171 Est GFR (MDRD) Non-Af 142 BUN/Creatinine Ratio 41.2 H Glucose 116 H Calcium 7.9 L Medical Necessity - Tobacco Use Smoking Status: Former smoker Assessment/Plan All Active Problems Severe sepsis (Ruled-out) Pleural effusion (Acute) Neutropenia (Acute) Cystitis (Ruled-out) #1 pancytopenia secondary to chemotherapy for lung cancer-patient was placed on Granix subcu daily, CBC will be rechecked tomorrow #2 loculated right pleural effusion-probably chronic in nature, no thoracentesis needed, patient's oxygen requirements are the same as at home-he is on 4 L of oxygen via nasal cannula currently #3 stage IIIb non-small cell lung cancer-oncology is following #4 chronic hypoxic respiratory failure-again patient's oxygen requirement is the same as it is at home 4 L/min via nasal cannula. #5 stomatitis-continue present medications, patient was seen by speech therapy today due to his complaints of difficulty swallowing At this time, there is no evidence for sepsis in this patient, I do not believe he was septic on admission, I also do not believe he had a cystitis on admission. Urine culture grew out no significant organisms only low numbers of mixed gram-positive bacteria. Code Visit Inpatient E&M: 25508 Subs Hosp L2
[2018-07-16] MEDS: 0.9% NaCl IVPB Med Flush (250 mL) 15 ML IV (21:15)
[2018-07-16] MEDS: BMX LIQUID 180 ML PO (23:46)
[2018-07-17] VITALS (14 sets, daily range): BP systolic 114–142; BP diastolic 61–77; PULSE 90–111; RESP 16–21; TEMP 36.5–37.1; O2SAT 93–96
[2018-07-17] MEDS: morphine (oral solution) 10MG/0.5ML Syringe 5 MG PO (00:18)
[2018-07-17] MEDS: HYDROcodone Bitartrate/Apap 5/325 Tablet PO ×2 (04:54→20:28)
[2018-07-17] MEDS: 0.9% NaCl Peripheral Flush Adult/Peds IV ×3 (04:56→22:51)
[2018-07-17] MEDS: Ipratropium/Albuterol Sulfate 3 ML AMPUL.NEB INHALATION ×3 (07:11→15:31)
[2018-07-17 07:12] LABS: Absolute Lymphocyte Count 0.88 X10^3/ul (0.83-4.51); Absolute Neutrophil Count 0.4 X10^3/uL (2.0-7.7); Basophil# 0.01 X10^3/uL; Basophil% 0.8 % (0-1); Eosinophil# 0.01 X10^3/uL; Eosinophils% 0.8 % (0-5); Hematocrit 32.2 % (40-54); Hemoglobin 9.9 g/dl (13.0-16.5); Lymphocyte # 0.88 X10^3/ul (4.0); Lymphocyte % 68.2 % (19-41); Mean Corp Hgb Conc 30.7 g/gl (32-36); Mean Corpuscular Hgb 25.3 pg (27.0-32.0); Mean Corpuscular Volume 82.4 fL (80-94); Monocyte# 0.02 X10^3/uL; Monocyte% 1.6 % (0-10); Neutrophil # 0.36 X10^3/uL (2.7-7.7); Neutrophil % 27.8 % (47-70); Platelet Count 7 K/mm3 (150-450); RBC Distribution Width CV 14.6 % (11.6-14.6); Red Blood Count 3.91 M/mm3 (4.6-6.2); White Blood Count 1.3 K/mm3 (4.4-11.0)
[2018-07-17 07:26] LABS: Differential Indicated SCAN CRITERIA MET; POSITIVE COUNT YES; POSITIVE DIFFERENTIAL YES; POSITIVE MORPHOLOGY YES
[2018-07-17 07:27] LABS: Differential Comment SCANNED; Platelet Estimate MKD DEC (ADEQ)
--- NOTE | 2018-07-17 07:46 | PN_ITS ---
Patient Problems: Active and Suspected Problems Neutropenia (Acute) Subjective: Mouth sore and dry no bleeding. Complaint of increased diarrhea. No chest pain, cough or shortness of breath. Patient remained afebrile. - Physical Exam General: Alert, Oriented x3, No apparent distress Oral: Dry Mucosa, - - + petechiae; no thrush Neck: Supple, No JVD Lungs: No rhonchi, No wheeze, No rales, Diminished - Right lung base Cardiovascular: Regular rate, Regular Rhythm, Normal S1, Normal S2 Abdomen: Bowel Sounds Present, Soft, Non Tender, Non-Distended, No Hepato-sple nomegaly Extremities: No clubbing, No cyanosis, No edema Skin: No rashes Musculoskeletal: No Tenderness to Palpation of Joints or Extremities Lymphatic: No Cervical, Supraclavicular, or Inguinal Adenopathy Neurological: Neuro grossly intact Psych/Mental Status: Normal Affect Vital Signs Temp Pulse Resp BP Pulse Ox 97.9 F 97 20 H 122/68 H 95 07/17/18 06:50 07/17/18 06:50 07/17/18 06:50 07/17/18 06:50 07/17/18 06:50 Oxygen Flow Rate (L/min) 4 Oxygen Delivery Method Nasal Cannula Weight: 197 lb 5.019 oz Body Mass Index (BMI) 30.9 Intake and Output for Last 24 Hours 07/15/18 07/16/18 07/17/18 23:59 23:59 23:59 Intake Total 1267 / 1267 1319 / 1319 Output Total Balance 1267 / 1267 1319 / 1319 Microbiology Past 72 Hours 07/13/18 20:27 Blood Culture - Preliminary Blood Culture (Wb) - Anticubital Right No growth in 48 hours. 07/13/18 20:27 Blood Culture - Preliminary Blood Culture (Wb) - Anticubital Left No growth in 48 hours. 07/15/18 17:56 Streptococcus pneumoniae Antigen (M - Final Urine, Clean Catch 07/15/18 17:56 Legionella Antigen - Final Urine, Clean Catch 07/13/18 19:30 Urine Culture - Final Urine, Clean Catch Mixed Gram Positive Organisms Laboratory Tests Past 24 Hrs 07/13/18 07/14/18 07/15/18 18:58 07:18 07:25 WBC RBC Hgb Hct MCV MCH MCHC RDW RDW Differential Plt Count MPV Immature Gran % (Auto) Neut % (Auto) Lymph % (Auto) [place] % (Auto) Eos % (Auto) Baso % (Auto) Absolute Neuts (auto) Absolute Lymphs (auto) Total Counted Neutrophils % (Manual) Lymphocytes % (Manual) Monocytes % (Manual) Differential Comment Diff Path Review Reviewed Reviewed Reviewed Platelet Estimate RBC Morphology PT INR Sodium Potassium Chloride Carbon Dioxide Anion Gap BUN Creatinine Estim Creat Clear Calc Est GFR (MDRD) Af Amer Est GFR (MDRD) Non-Af BUN/Creatinine Ratio Glucose Calcium 07/16/18 07/16/18 07/16/18 07:27 07:27 07:27 WBC 0.6 L* RBC 4.10 L Hgb 10.7 L Hct 34.2 L MCV 83.4 MCH 26.1 L MCHC 31.3 L RDW 14.5 RDW Differential 43.6 Plt Count 20 L* MPV 11.2 Immature Gran % (Auto) Neut % (Auto) Not Reportable Lymph % (Auto) [place] % (Auto) Eos % (Auto) Baso % (Auto) Absolute Neuts (auto) 0.1 L Absolute Lymphs (auto) 0.50 L Total Counted 100 Neutrophils % (Manual) 12 L Lymphocytes % (Manual) 84 H* Monocytes % (Manual) 4 Differential Comment Diff Path Review May foll Platelet Estimate MKD DEC RBC Morphology NORM C+C PT 16.7 H INR 1.4 Sodium 143 Potassium 3.9 Chloride 116 H Carbon Dioxide 17.0 L Anion Gap 10 BUN 25 H Creatinine 0.61 L Estim Creat Clear Calc 112.88 Est GFR (MDRD) Af Amer 171 Est GFR (MDRD) Non-Af 142 BUN/Creatinine Ratio 41.2 H Glucose 116 H Calcium 7.9 L 07/17/18 06:24 WBC 1.3 L* RBC 3.91 L Hgb 9.9 L Hct 32.2 L MCV 82.4 MCH 25.3 L MCHC 30.7 L RDW 14.6 RDW Differential 44.0 H Plt Count 7 L* MPV TNP Immature Gran % (Auto) 0.800 Neut % (Auto) 27.8 L Lymph % (Auto) 68.2 H [place] % (Auto) 1.6 Eos % (Auto) 0.8 Baso % (Auto) 0.8 Absolute Neuts (auto) 0.4 L Absolute Lymphs (auto) 0.88 Total Counted Not Reportable Neutrophils % (Manual) Lymphocytes % (Manual) Monocytes % (Manual) Differential Comment SCANNED Diff Path Review May foll Platelet Estimate MKD DEC RBC Morphology PT INR Sodium Potassium Chloride Carbon Dioxide Anion Gap BUN Creatinine Estim Creat Clear Calc Est GFR (MDRD) Af Amer Est GFR (MDRD) Non-Af BUN/Creatinine Ratio Glucose Calcium Medical Necessity - Tobacco Use Smoking Status: Former smoker Assessment/Plan All Active Problems Severe sepsis (Ruled-out) Pleural effusion (Acute) Neutropenia (Acute) Cystitis (Ruled-out) Assesment/Plan 1. Neutropenia secondary to chemotherapy; - continue filgrastim 480 mcg/day & Cefepine. Blood cultures result is pending. No area that can be isolated as the source of infection. No chest pain or redness on the Right chest wall. -Monitor CBC daily. -Stop antibiotics if blood cultures are negative and ANCs > 1000 2. Stage 3B Non small cell lung cancer. The patient was given chemotherapy 10 days ago with Carboplatin, Alimta and Kytruda. Did not receive Neulasta. -Patient had previous chest tube in his right lung; pleural fluid was loculated -Thoracentesis, fluids is all loculated. -Continue oxygen; nebulizer treatment every 6 hours [id number] -Consider adjusting doses of subsequent chemotherapy- adding Neulasta with subsequent treatment as secondary prophylaxis for neutropenia. 3. Stomatitis and mucositis secondary to chemotherapy; -Continue BMX suspension as needed -Morphine 5 mg every 2 hours as needed for pain -Good oral care and encourage increase oral fluids. -IV to KVO -Consult nutrition therapy 4. Thrombocytopenia secondary to chemotherapy -Transfuse 5 units random donor platelets today; repeat CBC tomorrow -SHAYNA hoses, ambulate and SCDs in bed. Possible discharge home tomorrow if his count is adequate; arrange for home oxygen if needed & outpatient physical therapy. Follow-up in my office next week. cc: Dr. Spencer Trpip; Dr. Irina Savage; Kimberlyn Santiago, DEV-C
[2018-07-17] MEDS: Fluconazole 100 MG Tablet 200 MG PO (09:31)
[2018-07-17] MEDS: Folic Acid 1 MG Tablet PO (09:31)
--- NOTE | 2018-07-17 09:41 | NURSING ---
pt states difficultly with taking to many pills at one time. pt requested to have max of 3 pills at a time spread out by an hour to prevent from throwing up.
[2018-07-17 10:36] LABS: Pathologist Review Reviewed
[2018-07-17 10:49] LABS: Pathologist Review Reviewed
[2018-07-17] MEDS: TBO-FILGRASTIM 480 MCG/0.8 ML ML SC (11:01)
[2018-07-17] MEDS: Sertraline 50 MG Tablet PO (11:02)
[2018-07-17] MEDS: Pantoprazole Sodium 40 MG Tablet PO (11:02)
[2018-07-17] MEDS: Dronabinol 2.5 MG Capsule 5 MG PO ×2 (11:02→22:56)
[2018-07-17] MEDS: BMX LIQUID 180 ML PO ×2 (11:03→20:28)
--- NOTE | 2018-07-17 17:41 | PCM.PROGNOTE ---
Patient Problems: Active and Suspected Problems Neutropenia (Acute) Subjective: Patient was seen and examined today, his platelet count this morning was 7000, he was given platelets by oncology. Patient's total white blood cell count is increased to 1,300 today. Patient's oxygen requirement has not changed he remains on 4 L of oxygen. - Physical Exam General: Alert, Oriented x3, Cooperative, No apparent distress, Well developed HEENT: Atraumatic, PERRLA, EOMI, Normocephalic Oral: Moist Mucosa Neck: Supple, Trachea Midline, Thyroid Normal Size and Texture Lungs: No rhonchi, No wheeze, No rales, Diminished - Over the right lower lung field Cardiovascular: Regular rate, Regular Rhythm, Normal S1, Normal S2, No murmurs, No Ectopic Activity, PMI Normal, No rub noted, No Gallop Abdomen: Bowel Sounds Present, Soft, Non Tender Extremities: No clubbing, No cyanosis, No edema, Capillary Refill Less than 3 Seconds Skin: No rashes, No breakdown Neurological: Cranial nerves II-XII grossly intact, Neuro grossly intact, Sensory exam intact to light touch and pain, Coordination normal Psych/Mental Status: Normal Affect, Appropriate, Alert and oriented to time, place, person, mood and affect Vital Signs Temp Pulse Resp BP Pulse Ox 97.8 F 99 18 130/76 H 94 07/17/18 16:28 07/17/18 16:28 07/17/18 16:28 07/17/18 16:28 07/17/18 16:28 Oxygen Flow Rate (L/min) 4 Oxygen Delivery Method Nasal Cannula Weight: 89.5 kg Body Mass Index (BMI) 30.9 Intake and Output for Last 24 Hours 07/15/18 07/16/18 07/17/18 23:59 23:59 23:59 Intake Total 1267 / 1267 1819 / 1819 Output Total Balance 1267 / 1267 1819 / 1819 Microbiology Past 72 Hours 07/17/18 10:55 C. difficile DNA Amplification - Final Stool 07/17/18 10:55 Stool Lactoferrin - Final Stool 07/13/18 20:27 Blood Culture - Preliminary Blood Culture (Wb) - Anticubital Right No growth in 48 hours. 07/13/18 20:27 Blood Culture - Preliminary Blood Culture (Wb) - Anticubital Left No growth in 48 hours. 07/15/18 17:56 Streptococcus pneumoniae Antigen (M - Final Urine, Clean Catch 07/15/18 17:56 Legionella Antigen - Final Urine, Clean Catch 07/13/18 19:30 Urine Culture - Final Urine, Clean Catch Mixed Gram Positive Organisms Laboratory Tests Past 24 Hrs 07/16/18 07/16/18 07/17/18 07:27 07:27 06:24 WBC 1.3 L* RBC 3.91 L Hgb 9.9 L Hct 32.2 L MCV 82.4 MCH 25.3 L MCHC 30.7 L RDW 14.6 RDW Differential 44.0 H Plt Count 7 L* MPV TNP Immature Gran % (Auto) 0.800 Neut % (Auto) 27.8 L Lymph % (Auto) 68.2 H [place] % (Auto) 1.6 Eos % (Auto) 0.8 Baso % (Auto) 0.8 Absolute Neuts (auto) 0.4 L Absolute Lymphs (auto) 0.88 Total Counted Not Reportable Differential Comment SCANNED Diff Path Review Reviewed Reviewed Platelet Estimate MKD DEC Blood Type A NEGATIVE Medical Necessity - Tobacco Use Smoking Status: Former smoker Assessment/Plan All Active Problems Severe sepsis (Ruled-out) Pleural effusion (Acute) Neutropenia (Acute) Cystitis (Ruled-out) #1 pancytopenia secondary to chemotherapy for lung cancer-continue present treatment, recheck CBC tomorrow #2 loculated right pleural effusion-suspected to be secondary to lung cancer-probably chronic in nature, no thoracentesis needed, patient's oxygen requirements are the same as at home-he is on 4 L of oxygen via nasal cannula currently #3 stage IIIb non-small cell lung cancer-oncology is following #4 chronic hypoxic respiratory failure-again patient's oxygen requirement is the same as it is at home 4 L/min via nasal cannula. #5 stomatitis-continue present medications At this time, there is no evidence for sepsis in this patient, I do not believe he was septic on admission, I also do not believe he had a cystitis on admission. Urine culture grew out no significant organisms only low numbers of mixed gram-positive bacteria. Code Visit Inpatient E&M: 10295 Subs Hosp L2
[2018-07-17] MEDS: Loperamide 2 MG Capsule PO (22:56)
[2018-07-17] MEDS: Ibuprofen 400 MG Tablet 800 MG PO (23:11)
[2018-07-18] VITALS (7 sets, daily range): BP systolic 105–126; BP diastolic 60–65; PULSE 85–95; RESP 18–20; TEMP 36.6–36.7; O2SAT 92–94
[2018-07-18] MEDS: 0.9% NaCl Peripheral Flush Adult/Peds IV ×2 (02:47→04:56)
[2018-07-18] MEDS: HYDROcodone Bitartrate/Apap 5/325 Tablet PO (05:02)
[2018-07-18] MEDS: BMX LIQUID 180 ML PO (06:14)
[2018-07-18 06:54] LABS: Hematocrit 31.2 % (40-54); Hemoglobin 9.6 g/dl (13.0-16.5); Mean Corp Hgb Conc 30.8 g/gl (32-36); Mean Corpuscular Hgb 25.4 pg (27.0-32.0); Mean Corpuscular Volume 82.5 fL (80-94); Mean Platelet Vol. 9.3 fl (6.2-12.0); RBC Distribution Width CV 14.6 % (11.6-14.6); RBC Distribution Width SD 43.9 fl (35.1-43.9); Red Blood Count 3.78 M/mm3 (4.6-6.2); White Blood Count 4.1 K/mm3 (4.4-11.0)
[2018-07-18 06:57] LABS: POSITIVE COUNT YES; POSITIVE DIFFERENTIAL NO; POSITIVE MORPHOLOGY YES; Platelet Count 17 K/mm3 (150-450)
[2018-07-18] MEDS: Ipratropium/Albuterol Sulfate 3 ML AMPUL.NEB INHALATION ×2 (07:14→11:05)
[2018-07-18 07:15] LABS: Differential Comment SCAN; Platelet Estimate MKD DEC (ADEQ)
[2018-07-18 07:16] LABS: Differential Indicated MANUAL DIFF
[2018-07-18 07:21] LABS: Anisocytosis 1+; Eosinophil 1 % (0-5); Hypochromasia 1+; Lymphocyte 41 % (19-41); Metamyelocyte 3 % (0-1); Microcytosis 1+; Monocyte 5 % (0-10); Myelocyte 1 (0-0); Neutrophil-Band 12 % (0-5); Neutrophil-Segmented 37 % (47-70); Total Cells Counted 100 (MANUAL DIFF)
[2018-07-18 07:23] LABS: Absolute Lymphocyte Count 1.68 X10^3/ul (0.83-4.51)
[2018-07-18] MEDS: Ibuprofen 400 MG Tablet 800 MG PO (08:07)
--- NOTE | 2018-07-18 08:19 | PCM.PN.BLA ---
Progress Note Oncology progress note: Patient is clinically stable, still has mild stomatitis and diarrhea. No cough, chest pain or shortness of breath. Patient remained afebrile and blood cultures urine cultures were negative. Denied nausea, vomiting. Vital Signs - 24 hr Temp Pulse Resp BP Pulse Ox 07/18/18 07:58 97.8 F 93 18 123/64 H 92 07/18/18 02:40 97.9 F 85 20 H 105/60 94 07/17/18 20:37 98.7 F 92 20 H 142/67 H 96 07/17/18 18:02 97.7 F L 92 18 130/70 H 94 07/17/18 18:00 97.7 F L 92 18 130/70 H 94 07/17/18 16:28 97.8 F 99 18 130/76 H 94 07/17/18 16:13 97.8 F 95 18 114/64 95 07/17/18 15:15 98 16 07/17/18 15:13 98.2 F 90 18 127/61 H 94 07/17/18 11:19 103 H 18 07/17/18 09:37 97.7 F L 105 H 18 133/76 H 93 07/17/18 08:26 95 Laboratory Results - last 24 hr 07/16/18 07/16/18 07/17/18 07:27 07:27 06:24 WBC RBC Hgb Hct MCV MCH MCHC RDW RDW Differential Plt Count MPV Immature Gran % (Auto) Neut % (Auto) Lymph % (Auto) [place] % (Auto) Eos % (Auto) Baso % (Auto) Absolute Neuts (auto) Absolute Lymphs (auto) Total Counted Neutrophils % (Manual) Band Neutrophils % Lymphocytes % (Manual) Monocytes % (Manual) Eosinophils % (Manual) Metamyelocytes % Myelocytes % Differential Comment Diff Path Review Reviewed Reviewed Platelet Estimate Hypochromasia Anisocytosis Microcytosis Blood Type A NEGATIVE 07/18/18 05:46 WBC 4.1 L RBC 3.78 L Hgb 9.6 L Hct 31.2 L MCV 82.5 MCH 25.4 L MCHC 30.8 L RDW 14.6 RDW Differential 43.9 Plt Count 17 L* MPV 9.3 Immature Gran % (Auto) COUNSELING PROGRAM LEADER Neut % (Auto) COUNSELING PROGRAM LEADER Lymph % (Auto) COUNSELING PROGRAM LEADER [place] % (Auto) COUNSELING PROGRAM LEADER Eos % (Auto) COUNSELING PROGRAM LEADER Baso % (Auto) COUNSELING PROGRAM LEADER Absolute Neuts (auto) 2.0 Absolute Lymphs (auto) 1.68 Total Counted 100 Neutrophils % (Manual) 37 L Band Neutrophils % 12 H Lymphocytes % (Manual) 41 Monocytes % (Manual) 5 Eosinophils % (Manual) 1 Metamyelocytes % 3 H Myelocytes % 1 H Differential Comment SCAN Diff Path Review May foll Platelet Estimate MKD DEC Hypochromasia 1+ Anisocytosis 1+ Microcytosis 1+ Blood Type Assesment/Plan 1. Neutropenia secondary to chemotherapy; resolved -Discontinue G-CSF & Cefepine and Diflucan. 2. Stage 3B Non small cell lung cancer. The patient was given chemotherapy 10 days ago with Carboplatin, Alimta and Kytruda. Did not receive Neulasta. -Patient had previous chest tube in his right lung; pleural fluid was loculated -Thoracentesis, fluids is all loculated. -Continue oxygen & inhalers at home -Consider adjusting doses of subsequent chemotherapy- adding Neulasta with subsequent treatment as secondary prophylaxis for neutropenia. 3. Stomatitis and mucositis secondary to chemotherapy; -Continue BMX suspension as needed -Morphine 5 mg every 2 hours as needed for pain -Good oral care and -Imodium every 4 as needed. -Continue Protonix and Zofran as needed for nausea 4. Thrombocytopenia secondary to chemotherapy-bleeding for now -Transfusion not needed today. -Repeat CBC tomorrow in my office for possible transfusion. Possible discharge home this morning; arrange for home oxygen if needed & outpatient physical therapy. Follow-up in my office next week. cc: Dr. Spencer Tripp; Dr. Irina Savage; Kimberlyn Santiago, DEV-C
--- NOTE | 2018-07-18 08:25 | PN_ITS ---
Progress Note Oncology progress note: Patient is clinically stable, still has mild stomatitis and diarrhea. No cough, chest pain or shortness of breath. Patient remained afebrile and blood cultures urine cultures were negative. Denied nausea, vomiting. Vital Signs - 24 hr Temp Pulse Resp BP Pulse Ox 07/18/18 07:58 97.8 F 93 18 123/64 H 92 07/18/18 02:40 97.9 F 85 20 H 105/60 94 07/17/18 20:37 98.7 F 92 20 H 142/67 H 96 07/17/18 18:02 97.7 F L 92 18 130/70 H 94 07/17/18 18:00 97.7 F L 92 18 130/70 H 94 07/17/18 16:28 97.8 F 99 18 130/76 H 94 07/17/18 16:13 97.8 F 95 18 114/64 95 07/17/18 15:15 98 16 07/17/18 15:13 98.2 F 90 18 127/61 H 94 07/17/18 11:19 103 H 18 07/17/18 09:37 97.7 F L 105 H 18 133/76 H 93 07/17/18 08:26 95 Laboratory Results - last 24 hr 07/16/18 07/16/18 07/17/18 07:27 07:27 06:24 WBC RBC Hgb Hct MCV MCH MCHC RDW RDW Differential Plt Count MPV Immature Gran % (Auto) Neut % (Auto) Lymph % (Auto) [place] % (Auto) Eos % (Auto) Baso % (Auto) Absolute Neuts (auto) Absolute Lymphs (auto) Total Counted Neutrophils % (Manual) Band Neutrophils % Lymphocytes % (Manual) Monocytes % (Manual) Eosinophils % (Manual) Metamyelocytes % Myelocytes % Differential Comment Diff Path Review Reviewed Reviewed Platelet Estimate Hypochromasia Anisocytosis Microcytosis Blood Type A NEGATIVE 07/18/18 05:46 WBC 4.1 L RBC 3.78 L Hgb 9.6 L Hct 31.2 L MCV 82.5 MCH 25.4 L MCHC 30.8 L RDW 14.6 RDW Differential 43.9 Plt Count 17 L* MPV 9.3 Immature Gran % (Auto) SEALING [employer]CELING MACHINE OPERATOR Neut % (Auto) SEALING AND CANCELING MACHINE OPERATOR Lymph % (Auto) SEALING AND CANCELING MACHINE OPERATOR [place] % (Auto) SEALING AND CANCELING MACHINE OPERATOR Eos % (Auto) SEALING AND CANCELING MACHINE OPERATOR Baso % (Auto) SEALING AND CANCELING MACHINE OPERATOR Absolute Neuts (auto) 2.0 Absolute Lymphs (auto) 1.68 Total Counted 100 Neutrophils % (Manual) 37 L Band Neutrophils % 12 H Lymphocytes % (Manual) 41 Monocytes % (Manual) 5 Eosinophils % (Manual) 1 Metamyelocytes % 3 H Myelocytes % 1 H Differential Comment SCAN Diff Path Review May foll Platelet Estimate MKD DEC Hypochromasia 1+ Anisocytosis 1+ Microcytosis 1+ Blood Type Assesment/Plan 1. Neutropenia secondary to chemotherapy; resolved -Discontinue G-CSF & Cefepine and Diflucan. 2. Stage 3B Non small cell lung cancer. The patient was given chemotherapy 10 days ago with Carboplatin, Alimta and Kytruda. Did not receive Neulasta. -Patient had previous chest tube in his right lung; pleural fluid was loculated -Thoracentesis, fluids is all loculated. -Continue oxygen & inhalers at home -Consider adjusting doses of subsequent chemotherapy- adding Neulasta with subsequent treatment as secondary prophylaxis for neutropenia. 3. Stomatitis and mucositis secondary to chemotherapy; -Continue BMX suspension as needed -Morphine 5 mg every 2 hours as needed for pain -Good oral care and -Imodium every 4 as needed. -Continue Protonix and Zofran as needed for nausea 4. Thrombocytopenia secondary to chemotherapy-bleeding for now -Transfusion not needed today. -Repeat CBC tomorrow in my office for possible transfusion. Possible discharge home this morning; arrange for home oxygen if needed & outpatient physical therapy. Follow-up in my office next week. cc: Dr. Spencer Tripp; Dr. Irina Savage; Kimberlyn Santiago, DEV-C
[2018-07-18] MEDS: Sertraline 50 MG Tablet PO (09:38)
[2018-07-18] MEDS: TBO-FILGRASTIM 480 MCG/0.8 ML ML SC (09:48)
[2018-07-18] MEDS: Dronabinol 2.5 MG Capsule 5 MG PO (09:48)
--- NOTE | 2018-07-18 11:07 | DCINST_ITS ---
- Discharge Diagnoses Current Active Problems: Current Active and Chronic Problems Metastatic primary lung cancer (Chronic) Neutropenia (Acute) You will use the following diet at home:: No restrictions Your food should be the consistency of: Regular Your liquids should be the consistency of: Regular/Thin Discharge Activity: Return to Normal Activity Weight Bearing Status: Full weight bearing Allergies/Adverse Reactions: Allergies No Known Allergies Allergy (Verified 07/13/18 18:39) Medications to take at Discharge Bmx Liquid 5 ml PO Q4H PRN PRN 07/13/18 Dexamethasone [Decadron] 4 mg PO BIDCM 07/13/18 Dronabinol [Marinol] 5 mg PO BID 07/13/18 Folic Acid 1 mg PO DAILY@0800 07/13/18 Hydrocodone/Acetaminophen [[place] 5-325 Tablet] 1 each PO Q6H PRN PRN 07/13/18 Ipratropium/Albuterol Sulfate [Duoneb] 3 ml INHALATION Q4H.RT 07/13/18 Omeprazole 40 mg PO DAILY 07/13/18 Ondansetron [Zofran] 8 mg PO Q8H PRN PRN 07/13/18 Pembrolizumab [Keytruda] 100 mg IV 07/13/18 Pemetrexed 07/13/18 Sertraline HCl [Zoloft] 50 mg PO DAILY 07/13/18 Bmx Liquid 5 ml PO Q4H PRN PRN ml 07/18/18 Ibuprofen [Motrin] 800 mg PO Q8H PRN PRN #1 tablet 07/18/18 Loperamide [Imodium] 2 mg PO Q2H PRN PRN capsule 07/18/18 Saliva Substitute [Biotene] 15 ml MM 5X/DAY PRN bottle 07/18/18 The following prescriptions were given: Ibuprofen [Motrin] 800 mg PO Q8H PRN PRN #1 tablet PRN Reason: Pain Primary Care Physician: Kimberlyn Santiago NP-C [Primary Care Provider] - Test Results: Test results from this visit will be discussed in further detail at your follow- up appointment, if applicable. Please Follow Up With: Irina Savage MD When: tomorrow for repeat CBC, office appointment next week
[2018-07-18 14:38] LABS: Pathologist Review Reviewed
--- NOTE | 2018-07-19 21:02 | PCM.DC.SUM ---
Discharge Date and Diagnosis Date of Admission: 07/13/18 Date of Discharge: 07/18/18 - Primary Discharge Diagnosis #1 pancytopenia secondary to chemotherapy for lung cancer #2 loculated right pleural effusion-suspected to be secondary to lung cancer-probably chronic in nature #3 stage IIIb non-small cell lung cancer #4 chronic hypoxic respiratory failure #5 stomatitis secondary to chemotherapy for non-small cell lung cancer #6 glans penis abrasion - Secondary Discharge Diagnosis Chronic Problems Metastatic primary lung cancer (Chronic) Hospital Course and Treatment Operations: None Procedures: - - Platelet transfusion Summary of Care Provided: The patient is a 63 year old M who was seen in the emergency room at [facility] with a chief complaint of shortness of breath and generalized weakness, patient has a history of non-small cell lung cancer, he had received chemotherapy 8 days prior. Evaluation in the emergency room included a chest x-ray which showed patchy opacities in the right middle and lower lobes likely representing atelectasis with a large right pleural effusion, CBC showed a white blood cell count of 1.1, platelet count was 110,000, BUN was 41, urinalysis showed positive leukocytes and 5-10 white blood cells. Lactic acid was 2.2, patient was given IV cefepime in the emergency room for possible cystitis and neutropenia. Patient was admitted to [place] [address] and seen in consultation by oncology. Patient's urine culture showed only mixed gram-positive organisms and this examiner did not feel the patient had a cystitis on admission. This examiner did not feel the patient had sepsis on admission. Patient was given Granix subcu due to neutropenia, he was also given a platelet infusion due to the fact his platelets dropped to 7000. Patient was seen by OT, PT, and speech therapy. He was treated for stomatitis from his chemotherapy. Patient was scheduled for thoracentesis but this had to be canceled due to his thrombocytopenia, right lateral decubitus view showed that the patient's right pleural effusion was loculated and was not amendable to drainage. Patient maintain his pulse ox on his home oxygen setting throughout his hospital stay. On 07/18/18, patient was seen and examined: On examination he appeared in good health and spirits. Vital signs as documented. Skin warm and dry and without overt rashes. Neck without JVD. Lungs-decreased breath sounds over the right lower lung field. Heart exam notable for regular rhythm, normal sounds and absence of murmurs, rubs or gallops. Abdomen unremarkable and without evidence of organomegaly, masses, or abdominal aortic enlargement. Extremities nonedematous. Neuro: Cranial nerves II through XII were intact, no focal motor deficits were noted. Psych: Patient was alert and oriented x3, he did not appear depressed or anxious. On 07/18/18, patient was seen and examined and felt to be in stable condition for discharge home Further note, on 07/18/18, patient noted some bleeding which was slight from the glans penis, this area was examined and there was a small abrasion on the glans penis that was not actively bleeding. - Physical Exam Vital Signs Temp Pulse Resp BP Pulse Ox 98.0 F 90 18 126/65 H 92 07/18/18 15:10 07/18/18 15:10 07/18/18 15:10 07/18/18 15:10 07/18/18 15:10 Oxygen Flow Rate (L/min) 4 Oxygen Delivery Method Nasal Cannula Weight: 89.5 kg Body Mass Index (BMI) 30.9 Intake and Output for Last 24 Hours 07/17/18 07/18/18 07/19/18 23:59 23:59 23:59 Intake Total 3178 / 3178 844 / 844 Balance 3178 / 3178 844 / 844 Microbiology Past 72 Hours 07/13/18 20:27 Blood Culture - Final Blood Culture (Wb) - Anticubital Right No growth in 5 days. 07/13/18 20:27 Blood Culture - Final Blood Culture (Wb) - Anticubital Left No growth in 5 days. 07/17/18 10:55 C. difficile DNA Amplification - Final Stool 07/17/18 10:55 Stool Lactoferrin - Final Stool Discharge Activity: Return to Normal Activity Weight Bearing Status: Full weight bearing Home Medications: Medications to take at Discharge Bmx Liquid 5 ml PO Q4H PRN PRN 07/13/18 Dexamethasone [Decadron] 4 mg PO BIDCM 07/13/18 Dronabinol [Marinol] 5 mg PO BID 07/13/18 Folic Acid 1 mg PO DAILY@0800 07/13/18 Hydrocodone/Acetaminophen [[place] 5-325 Tablet] 1 each PO Q6H PRN PRN 07/13/18 Ipratropium/Albuterol Sulfate [Duoneb] 3 ml INHALATION Q4H.RT 07/13/18 Omeprazole 40 mg PO DAILY 07/13/18 Ondansetron [Zofran] 8 mg PO Q8H PRN PRN 07/13/18 Pembrolizumab [Keytruda] 100 mg IV 07/13/18 Pemetrexed 07/13/18 Sertraline HCl [Zoloft] 50 mg PO DAILY 07/13/18 Bmx Liquid 5 ml PO Q4H PRN PRN ml 07/18/18 Ibuprofen [Motrin] 800 mg PO Q8H PRN PRN #1 tablet 07/18/18 Loperamide [Imodium] 2 mg PO Q2H PRN PRN capsule 07/18/18 Saliva Substitute [Biotene] 15 ml MM 5X/DAY PRN bottle 07/18/18 Following Prescrptions Were Given to Patient: Ibuprofen [Motrin] 800 mg PO Q8H PRN PRN #1 tablet PRN Reason: Pain Primary Care Physician: Kimberlyn Santiago NP-C [Primary Care Provider] - Please Follow Up With: Irina Savage MD When: tomorrow for repeat CBC, office appointment next week Disposition: Home Minutes spent on discharge:: 32 Patient Condition:: Stable Medical Necessity - Tobacco Use Smoking Status: Former smoker Meaningful Use Info Meaningful Use Diagnoses (Choose all that apply): None applicable Code Visit Inpatient E&M: 27153 Disch Hosp
--- NOTE | 2018-07-19 21:10 | DS.PCM_ITS ---
Discharge Date and Diagnosis Date of Admission: 07/13/18 Date of Discharge: 07/18/18 - Primary Discharge Diagnosis #1 pancytopenia secondary to chemotherapy for lung cancer #2 loculated right pleural effusion-suspected to be secondary to lung cancer- probably chronic in nature #3 stage IIIb non-small cell lung cancer #4 chronic hypoxic respiratory failure #5 stomatitis secondary to chemotherapy for non-small cell lung cancer #6 glans penis abrasion - Secondary Discharge Diagnosis Chronic Problems Metastatic primary lung cancer (Chronic) Hospital Course and Treatment Operations: None Procedures: - - Platelet transfusion Summary of Care Provided: The patient is a 63 year old M who was seen in the emergency room at [facility] with a chief complaint of shortness of breath and generalized weakness, patient has a history of non-small cell lung cancer, he had received chemotherapy 8 days prior. Evaluation in the emergency room included a chest x- ray which showed patchy opacities in the right middle and lower lobes likely representing atelectasis with a large right pleural effusion, CBC showed a white blood cell count of 1.1, platelet count was 110,000, BUN was 41, urinalysis showed positive leukocytes and 5-10 white blood cells. Lactic acid was 2.2, patient was given IV cefepime in the emergency room for possible cystitis and neutropenia. Patient was admitted to [place] [address] and seen in consultation by oncology. Patient's urine culture showed only mixed gram-positive organisms and this examiner did not feel the patient had a cystitis on admission. This examiner did not feel the patient had sepsis on admission. Patient was given Granix subcu due to neutropenia, he was also given a platelet infusion due to th e fact his platelets dropped to 7000. Patient was seen by OT, PT, and speech therapy. He was treated for stomatitis from his chemotherapy. Patient was scheduled for thoracentesis but this had to be canceled due to his thrombocytopenia, right lateral decubitus view showed that the patient's right pleural effusion was loculated and was not amendable to drainage. Patient maintain his pulse ox on his home oxygen setting throughout his hospital stay. On 07/18/18, patient was seen and examined: On examination he appeared in good health and spirits. Vital signs as documented. Skin warm and dry and without overt rashes. Neck without JVD. Lungs-decreased breath sounds over the right lower lung field. Heart exam notable for regular rhythm, normal sounds and absence of murmurs, rubs or gallops. Abdomen unremarkable and without evidence of organomegaly, masses, or abdominal aortic enlargement. Extremities nonedematous. Neuro: Cranial nerves II through XII were intact, no focal motor deficits were noted. Psych: Patient was alert and oriented x3, he did not appear depressed or anxious. On 07/18/18, patient was seen and examined and felt to be in stable condition for discharge home Further note, on 07/18/18, patient noted some bleeding which was slight from the glans penis, this area was examined and there was a small abrasion on the glans penis that was not actively bleeding. - Physical Exam Vital Signs Temp Pulse Resp BP Pulse Ox 98.0 F 90 18 126/65 H 92 07/18/18 15:10 07/18/18 15:10 07/18/18 15:10 07/18/18 15:10 07/18/18 15:10 Oxygen Flow Rate (L/min) 4 Oxygen Delivery Method Nasal Cannula Weight: 89.5 kg Body Mass Index (BMI) 30.9 Intake and Output for Last 24 Hours 07/17/18 07/18/18 07/19/18 23:59 23:59 23:59 Intake Total 3178 / 3178 844 / 844 Balance 3178 / 3178 844 / 844 Microbiology Past 72 Hours 07/13/18 20:27 Blood Culture - Final Blood Culture (Wb) - Anticubital Right No growth in 5 days. 07/13/18 20:27 Blood Culture - Final Blood Culture (Wb) - Anticubital Left No growth in 5 days. 07/17/18 10:55 C. difficile DNA Amplification - Final Stool 07/17/18 10:55 Stool Lactoferrin - Final Stool Discharge Activity: Return to Normal Activity Weight Bearing Status: Full weight bearing Home Medications: Medications to take at Discharge Bmx Liquid 5 ml PO Q4H PRN PRN 07/13/18 Dexamethasone [Decadron] 4 mg PO BIDCM 07/13/18 Dronabinol [Marinol] 5 mg PO BID 07/13/18 Folic Acid 1 mg PO DAILY@0800 07/13/18 Hydrocodone/Acetaminophen [[place] 5-325 Tablet] 1 each PO Q6H PRN PRN 07/13/18 Ipratropium/Albuterol Sulfate [Duoneb] 3 ml INHALATION Q4H.RT 07/13/18 Omeprazole 40 mg PO DAILY 07/13/18 Ondansetron [Zofran] 8 mg PO Q8H PRN PRN 07/13/18 Pembrolizumab [Keytruda] 100 mg IV 07/13/18 Pemetrexed 07/13/18 Sertraline HCl [Zoloft] 50 mg PO DAILY 07/13/18 Bmx Liquid 5 ml PO Q4H PRN PRN ml 07/18/18 Ibuprofen [Motrin] 800 mg PO Q8H PRN PRN #1 tablet 07/18/18 Loperamide [Imodium] 2 mg PO Q2H PRN PRN capsule 07/18/18 Saliva Substitute [Biotene] 15 ml MM 5X/DAY PRN bottle 07/18/18 Following Prescrptions Were Given to Patient: Ibuprofen [Motrin] 800 mg PO Q8H PRN PRN #1 tablet PRN Reason: Pain Primary Care Physician: Kimberlyn Santiago NP-C [Primary Care Provider] - Please Follow Up With: Irina Savage MD When: tomorrow for repeat CBC, office appointment next week Disposition: Home Minutes spent on discharge:: 32 Patient Condition:: Stable Medical Necessity - Tobacco Use Smoking Status: Former smoker Meaningful Use Info Meaningful Use Diagnoses (Choose all that apply): None applicable Code Visit Inpatient E&M: 97724 Disch Hosp
== END 2018-07-18 15:13 | disposition home or self-care (01) | DRG 180 ==
LOC: ED 21:05 → MS3 21:12
PROVIDERS: Admitting Provider Hospitalist; Emergency Provider Emergency Medicine; Family Provider Family Medicine; PCP Family Medicine; Visit Provider Internal Medicine
DX: C34.90 Malignant neoplasm of unspecified part of unspecified bronchus or lung (principal); D61.810 Antineoplastic chemotherapy induced pancytopenia; J96.11 Chronic respiratory failure with hypoxia; J91.8 Pleural effusion in other conditions classified elsewhere; D70.1 Agranulocytosis secondary to cancer chemotherapy; Z87.891 Personal history of nicotine dependence; Z99.81 Dependence on supplemental oxygen; T45.1X5A Adverse effect of antineoplastic and immunosuppressive drugs, initial encounter; K12.31 Oral mucositis (ulcerative) due to antineoplastic therapy; K12.1 Other forms of stomatitis; D69.59 Other secondary thrombocytopenia; R11.0 Nausea
CPT/HCPCS: 36415; 71045; 71046; 74018; 80048; 81001; 83605; 83630; 84484; 85025; 85610; 86644; 86900; 86965; 87040; 87086; 87088; 87449; 87493; 92526; 93005; 94640; 97162; 97165; 97802; 99283; 99406; J7030; J7050; P9035; A4216; J1447; J2405

== ENCOUNTER → 2018-07-20 10:26 | Outpatient (CLI) | payer MEDICARE, OTHER, SELFPAY ==
[2018-07-20 10:37] VITALS: BMI 30.5
[2018-07-20] MEDS: Acetaminophen 325 MG Tablet 650 MG PO (10:54)
[2018-07-20 11:34] VITALS: BP 100/55; PULSE 82; RESP 16; TEMP 36.6; O2SAT 96
[2018-07-20 12:14] VITALS: BP 92/50; PULSE 81; RESP 16; TEMP 36.7; O2SAT 97
== END ==
PROVIDERS: Family Provider Family Medicine; PCP Family Medicine; Referring Provider Internal Medicine Hematology & Oncology; Visit Provider Internal Medicine Hematology & Oncology
DX: D69.6 Thrombocytopenia, unspecified (principal); C34.90 Malignant neoplasm of unspecified part of unspecified bronchus or lung
CPT/HCPCS: 36430; 86644; 86900; 86965; J7040; P9035; A4216